=== PATIENT | female | born 1970 | race African-American/Black ===

== ENCOUNTER 2019-11-27 10:50 | Outpatient (CLI) | payer OTHER, SELFPAY ==
[2019-11-27 12:04] LABS: Basophils Percent Auto 0.6 % (0.2-1.2); Eosinophils Percent Auto 0.5 % (0-4.4); Hematocrit 41.3 % (37.0-47.0); Hemoglobin 13.7 g/dL (12.0-15.0); Immature Granulocyte Absolute 0.02 K/mm3 (0.00-0.031); Immature Granulocyte Percent A 0.3 % (0-0.5); Lymphocytes Absolute Auto 1.79 K/mm3 (0.9-3.2); Lymphocytes Percent Auto 27.2 % (18.3-44.2); Mean Corpuscular HGB Conc 33.2 g/dl (32-36); Mean Corpuscular Hemoglobin 30.8 pg (26-34); Mean Corpuscular Volume 92.8 fl (80-100); Mean Platelet Volume 8.7 fl (7.4-10.4); Monocytes Absolute Auto 0.5 K/mm3 (0.1-0.6); Monocytes Percent Auto 6.8 % (2.6-8.5); Neutrophils Absolute Auto 4.2 K/mm3 (1.3-6.7); Neutrophils Percent Auto 64.6 % (45.5-73.1); Platelet Count Result 378 k/mm3 (150-375); Red Blood Count 4.45 M/mm3 (4.2-5.4); Red Cell Distribution Width 12.3 % (11.5-14.5); White Blood Count 6.6 K/mm3 (4.5-10.0)
[2019-11-27 12:18] LABS: Alanine Aminotransferase 21 U/L (4-35); Albumin Level 4.4 g/dL (3.5-5.1); Alkaline Phosphatase 53 U/L (38-126); Aspartate Amino Transferase 25 U/L (14-36); Blood Urea Nitrogen 11 mg/dL (7-17); Calcium 9.1 mg/dL (8.4-10.2); Carbon Dioxide 27 mmol/L (22-30); Chloride 102 mmol/L (98-107); Cholesterol 212 mg/dL (0-200); Estimated Glomerular Filt Rate > 60; Glucose 86 mg/dL (65-105); HDL Direct 60 mg/dL; Potassium 3.8 mmol/L (3.4-5.0); Sodium 136 mmol/L (137-145); Triglycerides 71 mg/dL (<150)
[2019-11-27 12:31] LABS: LDL Cholesterol Direct 125 mg/dL
== END 2019-11-27 10:51 | disposition home or self-care (01) ==
PROVIDERS: PCP Family Medicine; Visit Provider Family Medicine
DX: I10 Essential (primary) hypertension (principal)
CPT/HCPCS: 36415; 80053; 80061; 82248; 84443; 85025

== ENCOUNTER 2019-12-07 16:31 | Outpatient (CLI) | payer OTHER, SELFPAY ==
--- NOTE | ~2019-12-07 | US_ITS ---
US retroperitoneal comp 08/03/2019 15:52 Procedure: Realtime transabdominal ultrasound of the kidneys and bladder. Indication: Bilateral flank pain Comparison: No prior studies for comparison. Findings: Renal echotexture is normal bilaterally without hydronephrosis, contour deforming mass. The re is a tiny echogenic focus in the inferior aspect of the left kidney. Cannot exclude nonobstructing stone. The right kidney measures 10.7 cm and left kidney measures 10 cm. Bladder within normal limi ts. Impression: 1: Small echogenic foci inferior aspect of the left kidney, possibly nonobstructing renal stone. Reviewed, dictated and finalized at location A. [employer] Impression: 1: Small echogenic foci inferior aspect of the left kidney, possibly nonobstruc ting renal stone.
--- NOTE | ~2019-12-07 | XR_ITS ---
LUMBAR SPINE INDICATION: Low back pain TECHNIQUE: 5 views lumbar spine COMPARISON: None FINDINGS: No fracture, subluxation or dislocation. No evidence for spondylolysis or spondylolisthesi s. Vertebral bodies and disk spaces are preserved. IMPRESSION: 1: No significant abnormality of the lumbar spine identified. Reviewed, dictated and finalized at location A. Y LADLE TENDER
== END 2019-12-07 16:32 | disposition home or self-care (01) ==
LOC: ANHIMG 16:32
PROVIDERS: PCP Family Medicine; Visit Provider Family Medicine
DX: R10.9 Unspecified abdominal pain (principal); M54.5 Low back pain
CPT/HCPCS: 72110; 76770

== ENCOUNTER 2020-03-20 10:56 | Outpatient (CLI) | payer OTHER, SELFPAY ==
[2020-03-20 13:03] LABS: Alanine Aminotransferase 19 U/L (4-35); Albumin Level 4.6 g/dL (3.5-5.1); Alkaline Phosphatase 56 U/L (38-126); Aspartate Amino Transferase 23 U/L (14-36); Bilirubin,Total 0.9 mg/dL (0.2-1.3); Blood Urea Nitrogen 10 mg/dL (7-17); Calcium 9.1 mg/dL (8.4-10.2); Carbon Dioxide 30 mmol/L (22-30); Chloride 101 mmol/L (98-107); Cholesterol 184 mg/dL (0-200); Estimated Glomerular Filt Rate > 60; Glucose 88 mg/dL (65-105); HDL Direct 59 mg/dL; Potassium 3.9 mmol/L (3.4-5.0); Sodium 136 mmol/L (137-145); Triglycerides 59 mg/dL (<150)
[2020-03-20 13:14] LABS: LDL Cholesterol Direct 96 mg/dL
== END 2020-03-20 10:57 | disposition home or self-care (01) ==
LOC: ANHLAB 10:57
PROVIDERS: PCP Family Medicine; Visit Provider Family Medicine
DX: E87.1 Hypo-osmolality and hyponatremia (principal); I10 Essential (primary) hypertension; E78.5 Hyperlipidemia, unspecified
CPT/HCPCS: 36415; 80053; 80061

== ENCOUNTER 2020-08-06 08:21 | Outpatient (CLI) | payer OTHER, SELFPAY ==
[2020-08-06 08:53] LABS: Alanine Aminotransferase 18 U/L (4-35); Albumin Level 4.4 g/dL (3.5-5.1); Alkaline Phosphatase 50 U/L (38-126); Anion Gap 8 mmol/L (8-16); Aspartate Amino Transferase 26 U/L (14-36); Bilirubin,Total 0.7 mg/dL (0.2-1.3); Blood Urea Nitrogen 15 mg/dL (7-17); Calcium 9.2 mg/dL (8.4-10.2); Carbon Dioxide 27 mmol/L (22-30); Chloride 101 mmol/L (98-107); Cholesterol 180 mg/dL (0-200); Estimated Glomerular Filt Rate > 60; Glucose 89 mg/dL (65-105); HDL Direct 60 mg/dL; Potassium 4.1 mmol/L (3.4-5.0); Sodium 136 mmol/L (137-145); Triglycerides 78 mg/dL (<150)
[2020-08-06 09:04] LABS: LDL Cholesterol Direct 91 mg/dL
== END 2020-08-06 08:22 | disposition home or self-care (01) ==
PROVIDERS: PCP Family Medicine; Visit Provider Family Medicine
DX: E87.1 Hypo-osmolality and hyponatremia (principal); I10 Essential (primary) hypertension; E78.5 Hyperlipidemia, unspecified
CPT/HCPCS: 36415; 80053; 80061

== ENCOUNTER 2021-04-18 07:40 | Outpatient (CLI) | payer OTHER, SELFPAY ==
[2021-04-18 08:25] LABS: Basophils Absolute Auto 0.1 K/mm3 (0.0-0.1); Basophils Percent Auto 0.7 % (0.2-1.2); Eosinophils Absolute Auto 0.1 K/mm3 (0-0.3); Eosinophils Percent Auto 0.9 % (0-4.4); Hematocrit 41.8 % (37.0-47.0); Immature Granulocyte Absolute 0.02 K/mm3 (0.00-0.031); Immature Granulocyte Percent A 0.3 % (0-0.5); Lymphocytes Absolute Auto 1.86 K/mm3 (0.9-3.2); Lymphocytes Percent Auto 24.3 % (18.3-44.2); Mean Corpuscular HGB Conc 33.5 g/dl (32-36); Mean Corpuscular Volume 92.7 fl (80-100); Mean Platelet Volume 8.5 fl (7.4-10.4); Monocytes Absolute Auto 0.5 K/mm3 (0.1-0.6); Monocytes Percent Auto 6.1 % (2.6-8.5); Neutrophils Absolute Auto 5.2 K/mm3 (1.3-6.7); Neutrophils Percent Auto 67.7 % (45.5-73.1); Platelet Count Result 309 k/mm3 (150-375); Red Blood Count 4.51 M/mm3 (4.2-5.4); Red Cell Distribution Width 11.8 % (11.5-14.5); White Blood Count 7.7 K/mm3 (4.5-10.0)
[2021-04-18 08:44] LABS: Alanine Aminotransferase 18 U/L (4-35); Albumin Level 4.6 g/dL (3.5-5.1); Alkaline Phosphatase 53 U/L (38-126); Anion Gap 10 mmol/L (8-16); Aspartate Amino Transferase 25 U/L (14-36); Bilirubin,Total 0.7 mg/dL (0.2-1.3); Blood Urea Nitrogen 14 mg/dL (7-17); Calcium 9.6 mg/dL (8.4-10.2); Carbon Dioxide 26 mmol/L (22-30); Chloride 103 mmol/L (98-107); Cholesterol 232 mg/dL (0-200); Estimated Glomerular Filt Rate > 60; Glucose 94 mg/dL (65-110); HDL Direct 66 mg/dL; Potassium 4.2 mmol/L (3.4-5.0); Sodium 139 mmol/L (137-145); Triglycerides 97 mg/dL (<150)
[2021-04-18 08:55] LABS: LDL Cholesterol Direct 117 mg/dL
== END 2021-04-18 07:41 | disposition home or self-care (01) ==
PROVIDERS: PCP Family Medicine; Visit Provider Family Medicine
DX: Z00.00 Encounter for general adult medical examination without abnormal findings (principal)
CPT/HCPCS: 36415; 80053; 80061; 85025

== ENCOUNTER 2021-11-12 08:20 | Emergency (ER) | payer OTHER, SELFPAY ==
--- NOTE | 2021-11-12 08:27 | ED.URI ---
HPI - URI/Sore Throat General Chief Complaint: Upper Respiratory Infection Stated Complaint: Throat/Ear Pain Time Seen by Provider: 11/12/21 08:25 Source: patient Mode of arrival: ambulatory Limitations: no limitations History of Present Illness HPI Narrative: 50-year-old female presents with concern for sore throat, nasal congestion, cough, bilateral ear pain since yesterday evening. Denies fever/chills. + fatigue. Taking Coricidin with no relief. pt works in healthcare setting. no known covid contacts but wants testing to be safe. denies SOB/CP. MD elicited complaint: sore throat Related Data Home Medications Medication Instructions Recorded Confirmed amlodipine 5 mg PO DAILY 11/12/21 11/12/21 rosuvastatin 5 mg PO DAILY 11/12/21 11/12/21 Allergies Allergy/AdvReac Type Severity Reaction Status Date / Time codeine Allergy Unknown Hives Verified 11/12/21 08:26 latex Allergy Unknown Other Verified 11/12/21 08:26 Review of Systems Review of Systems: All systems reviewed & are unremarkable except as noted in HPI and below Constitutional: Constitutional: Reports fatigue Eyes: Eyes: Reports as per HPI ENT: Reports nasal congestion and Reports sore throat Cardiovascular: Cardiovascular: Reports as per HPI Respiratory: Respiratory: Reports cough Gastrointestinal: Gastrointestinal: Reports as per HPI Genitourinary: Genitourinary: Reports as per HPI Musculoskeletal: Musculoskeletal: Reports as per HPI Integumentary/Breasts: Skin/Breast: Reports as per HPI Neurologic: Reports as per HPI Psychiatric: Psychiatric: Reports as per HPI Endocrine: Endocrine: Reports as per HPI Hematologic/Lymphatic: Hematologic/Lymphatic: Reports as per HPI Allergic/Immunologic: Allergic/Immunologic: Reports as per HPI PMFSH Past Medical History Medical History (Updated 11/12/21 @ 09:04 by Mayela Pérez NP) HLD (hyperlipidemia) HTN (hypertension) Surgical History Surgical History H/O tubal ligation H/O: hysterectomy History of right oophorectomy Family History Family History (Updated 06/02/18 @ 09:38 by DOCTOR UNKNOWN) Father Diabetes mellitus Hypertension Mother Hypertension Social History Social History Smoking status: Never smoker Alcohol intake: never Comments At time of signature, agree with nursing past medical, surgical, social and family history. There is no relevant family history pertinent to the presenting complaint. Exam Const: General: cooperative, no acute distress, alert and awake HENMT: Head: normal to inspection Ears: external ears normal and TM's normal bilaterally General nose exam: Normal external nose present and Nasal discharge present clear Face and sinus: normal facial exam Mouth: Yes Normal oral and palatal mucosa present Teeth and gingiva: dentition normal Throat: postnasal drainage Eyes: General: appearance normal, both eyes and all related structures Neck: Neck: normal visual inspection, full ROM and no lymphadenopathy Chest: Chest palpation & inspection: normal inspection of the chest Resp: Effort & Inspection: normal respiratory effort and able to speak in complete sentences Auscultation: clear to auscultation bilaterally Cardio: Rate: regular rate Rhythm: regular rhythm Skin: General skin exam: normal color and no rashes or lesions noted Neuro: General: oriented to person, oriented to place and oriented to time Extrem: General: normal to inspection and full ROM Course Course Emergency Course: Patient is aware of diagnosis, understands and agrees to treatment plan. Anticipatory guidance given. Patient agrees to follow-up as directed and is aware of reasons to seek care at the emergency department. Portions of this record may have been created with voice recognition software Level of Care: [facility] Care Visit Vi
[2021-11-12 08:28] VITALS: BP 156/93; PULSE 95; RESP 16; TEMP 36.4; O2SAT 99
== END 2021-11-12 09:23 | disposition home or self-care (01) ==
PROVIDERS: Emergency Provider Nurse Practitioner Family; PCP Family Medicine
DX: J06.9 Acute upper respiratory infection, unspecified (principal); Z20.822 Contact with and (suspected) exposure to COVID-19; E78.00 Pure hypercholesterolemia, unspecified; I10 Essential (primary) hypertension; Z90.711 Acquired absence of uterus with remaining cervical stump
CPT/HCPCS: 87426; 99213; C9803; G0463

== ENCOUNTER 2021-12-16 09:47 | Outpatient (CLI) | payer OTHER, SELFPAY ==
[2021-12-16 10:42] LABS: Basophils Absolute Auto 0.1 K/mm3 (0.0-0.1); Basophils Percent Auto 1.1 % (0.2-1.2); Eosinophils Absolute Auto 0.1 K/mm3 (0-0.3); Eosinophils Percent Auto 0.9 % (0-4.4); Hematocrit 39.5 % (37.0-47.0); Hemoglobin 13.3 g/dL (12.0-15.0); Immature Granulocyte Absolute 0.02 K/mm3 (0.00-0.031); Immature Granulocyte Percent A 0.3 % (0-0.5); Lymphocytes Absolute Auto 2.49 K/mm3 (0.9-3.2); Lymphocytes Percent Auto 31.8 % (18.3-44.2); Mean Corpuscular HGB Conc 33.7 g/dl (32-36); Mean Corpuscular Hemoglobin 31.1 pg (26-34); Mean Corpuscular Volume 92.5 fl (80-100); Mean Platelet Volume 8.4 fl (7.4-10.4); Monocytes Absolute Auto 0.5 K/mm3 (0.1-0.6); Monocytes Percent Auto 6.8 % (2.6-8.5); Neutrophils Absolute Auto 4.6 K/mm3 (1.3-6.7); Neutrophils Percent Auto 59.1 % (45.5-73.1); Platelet Count Result 335 k/mm3 (150-375); Red Blood Count 4.27 M/mm3 (4.2-5.4); Red Cell Distribution Width 12.3 % (11.5-14.5); White Blood Count 7.8 K/mm3 (4.5-10.0)
[2021-12-16 10:52] LABS: Alanine Aminotransferase 22 U/L (4-35); Albumin Level 4.7 g/dL (3.5-5.1); Alkaline Phosphatase 43 U/L (38-126); Anion Gap 7 mmol/L (8-16); Aspartate Amino Transferase 29 U/L (14-36); Bilirubin,Total 0.5 mg/dL (0.2-1.3); Blood Urea Nitrogen 13 mg/dL (7-17); Calcium 8.7 mg/dL (8.4-10.2); Carbon Dioxide 27 mmol/L (22-30); Chloride 104 mmol/L (98-107); Cholesterol 210 mg/dL (0-200); Estimated Glomerular Filt Rate > 60; Glucose 88 mg/dL (65-110); HDL Direct 61 mg/dL; Sodium 138 mmol/L (137-145); Triglycerides 59 mg/dL (<150)
[2021-12-16 11:03] LABS: LDL Cholesterol Direct 99 mg/dL
== END 2021-12-16 09:48 | disposition home or self-care (01) ==
LOC: ANHLAB 09:49
PROVIDERS: PCP Family Medicine; Visit Provider Family Medicine
DX: I10 Essential (primary) hypertension (principal)
CPT/HCPCS: 36415; 80053; 80061; 85025

== ENCOUNTER 2022-05-04 16:47 | Emergency (ER) | payer OTHER, SELFPAY ==
[2022-05-04] VITALS (12 sets, daily range): BP systolic 139–202; BP diastolic 84–104; PULSE 64–84; RESP 16–20; TEMP 36–36.8; O2SAT 97–100
--- NOTE | ~2022-05-04 | CT_ITS ---
EXAMINATION: CT abdomen pelvis wo con DATE: 05/04/2022 18:44 INDICATION: lower abd/LT flank pain x 1 1/2 wks TECHNIQUE: Computed tomography (CT) of the abdomen and pelvis was performed without intravenous contr ast. Automated exposure control and iterative reconstruction technique were employed. The dose-length product was 241.91 mGy-cm. COMPARISON: 08/30/2019. FINDINGS: Lower thorax: Unremarkable Liver: Normal. Biliary/Gallbladder: Gallbladder is normal. No bile duct dilation. Pancreas: No mass or duct dilation. Spleen: Normal. Adrenals:No mass. Kidneys: No mass or hydronephrosis. Punctate left upper pole calcification. GI tract: No small or large bowel dilation. Normal appendix. Diverticulosis without diverticulitis. Mesentery/Peritoneum: No ascites, mass, or free air. Retroperitoneum: No mass. Pelvis: Uterus is likely surgically absent. 3.7 cm left ovarian cyst. Mid and distal ureters incomple tely visualized. Mild bladder wall thickening given the degree of distention. Soft Tissues: Soft tissues and body wall unremarkable. Bones: No acute osseous finding. IMPRESSION: Mild bladder wall thickening, as can be seen with cystitis in the appropriate clinical context. 3.7 c m left ovarian cyst. Reviewed, dictated and finalized at location K. IMPRESSION: Mild bladder wall thickening, as can be seen with cystitis in the appropriate c linical context. 3.7 cm left ovarian cyst.
[2022-05-04] MEDS: KETOROLAC (*BKC) 60 MG/2 ML VIAL IM (18:05)
[2022-05-04 18:22] LABS: Basophils Absolute Auto 0.05 K/mm3 (0.00-0.10); Basophils Percent Auto 0.4 % (0.0-1.0); Eosinophils Absolute Auto 0.03 K/mm3 (0.02-0.50); Eosinophils Percent Auto 0.2 % (1.0-6.0); Hematocrit 41.3 % (35.0-49.0); Hemoglobin 13.7 g/dL (12.0-15.0); Immature Granulocyte Absolute 0.04 K/mm3 (0.00-0.00); Immature Granulocyte Percent A 0.3 % (0.0-0.0); Lymphocytes Absolute Auto 2.42 K/mm3 (1.10-4.50); Mean Corpuscular HGB Conc 33.2 g/dL (32.0-36.0); Mean Corpuscular Hemoglobin 31.3 pg (27.0-31.0); Mean Corpuscular Volume 94.3 fL (78.0-102.0); Mean Platelet Volume 8.3 fl (9.2-11.8); Monocytes Absolute Auto 0.84 K/mm3 (0.10-0.90); Monocytes Percent Auto 6.3 % (2.0-11.0); Neutrophils Percent Auto 74.8 % (50.0-70.0); Platelet Count Result 327 K/mm3 (150-420); Red Blood Count 4.38 M/mm3 (4.20-5.40); Red Cell Distribution Width 12.6 % (11.6-14.4); White Blood Count 13.4 K/mm3 (4.8-10.8)
[2022-05-04 18:25] LABS: Add Urine Microscopic? YES; Appearance Urine Clear (Clear); Bilirubin Urine Negative (Negative); Blood Urine 1+ (Negative); Color Urine Yellow (Yellow); Glucose Urine UA Negative (Negative); Ketones Urine 2+ (Negative); Leukocyte Esterase Ur Negative (Negative); Nitrate Urine Negative (Negative); Protein Urine Negative (Negative); Specific Grav Ur >= 1.030 (1.010-1.020); Urobilinogen Urine 0.2 mg/dL (0.2-1.0)
[2022-05-04 18:30] LABS: Bacteria Urine Trace /hpf; Mucus Urine Few /lpf; Pregnancy On Board Control Positive; Squamous Epithelial Cell Urine Rare /hpf (Few); Urine Pregnancy Test Negative; WBC Urine 0-3 /hpf (0-3)
--- NOTE | 2022-05-04 18:36 | PC.NURSE ---
PT IS ON STRETCHER WATCHING TV AT THIS TIME. PT REPORTS PAIN HAS IMPROVED, HOWEVER DOES REMAIN. PT IS AWAITING CT AT THIS TIME. WILL CONTINUE TO MONITOR.
--- NOTE | 2022-05-04 18:37 | PC.NURSE ---
TO CT AT THIS TIME.
[2022-05-04 18:38] LABS: Alanine Aminotransferase 19 U/L (14-59); Alkaline Phosphatase 57 U/L (46-116); Anion Gap 10 mmol/L (8-16); Aspartate Amino Transferase 14 U/L (15-37); Bilirubin,Total 0.6 mg/dL (0.00-1.00); Blood Urea Nitrogen 9 mg/dL (7-18); Calcium 9.1 mg/dL (8.5-10.1); Carbon Dioxide 27 mmol/L (21-32); Chloride 102 mmol/L (98-108); Estimated CRCL calculation 68 ml/min; Estimated Glomerular Filt Rate > 60; Glucose 86 mg/dL (70-99); Lipase 104 U/L (73-393); Osmolality Calculated 285 mOsm/kg (285-295); Potassium 3.7 mmol/L (3.5-5.1); Sodium 139 mmol/L (136-145); Total Protein 7.5 g/dL (6.4-8.2)
--- NOTE | 2022-05-04 19:09 | ED.FEMALEGU ---
HPI - Female Genitourinary General Chief complaint: Urogenital-Female Stated complaint: Kidney issue abdominal and back pain. Time Seen by Provider: 05/04/22 16:51 Source: patient and RN notes reviewed Mode of arrival: ambulatory Limitations: no limitations History of Present Illness HPI Narrative: mild persistent abdominal pain corey left flank and suprapubic. MD elicited complaint: difficulty urinating Onset (ago): week(s) (1) Location of symptoms: suprapubic and flank Severity: mild Female Urogenital Radiation: Suprapubic Severity scale (1-10): 4 Quality of pain: dull and aching Consistency: constant Vaginal discharge: none Vaginal bleeding: none Urinary symptoms: Urgency, Frequency and Foul Smelling Urine Exacerbating factors: none Relieving factors: none Associated symptoms: abdominal pain Treatment prior to arrival: none Patient : No Related Data Home Medications Medication Instructions Recorded Confirmed amlodipine 5 mg tablet 5 mg PO DAILY 11/12/21 05/04/22 rosuvastatin 5 mg tablet 5 mg PO DAILY 11/12/21 05/04/22 Allergies Allergy/AdvReac Type Severity Reaction Status Date / Time codeine Allergy Unknown Hives Verified 05/04/22 17:07 latex Allergy Unknown Other Verified 05/04/22 17:07 Review of Systems Review of Systems: All systems reviewed & are unremarkable except as noted in HPI and below Constitutional: Constitutional: Reports no additional constitutional complaints Eyes: Eyes: Reports no additional eye complaints ENT: Reports system reviewed and no additional complaints, except as documented Cardiovascular: Cardiovascular: Reports no additional cardiovascular complaints Respiratory: Respiratory: Reports no additional respiratory complaints Gastrointestinal: Gastrointestinal: Reports no additional gastrointestinal complaints Genitourinary: Genitourinary: Reports pelvic pain Musculoskeletal: Musculoskeletal: Reports no additional musculoskeletal complaints Integumentary/Breasts: Skin/Breast: Reports system reviewed and no additional complaints, except as docu Neurologic: Reports system reviewed and no additional complaints, except as documented Psychiatric: Psychiatric: Reports no additional psychiatric complaints Endocrine: Endocrine: Reports no additional endocrine complaints Hematologic/Lymphatic: Hematologic/Lymphatic: Reports no additional hematologic/lymphatic complaints Allergic/Immunologic: Allergic/Immunologic: Reports no additional allergic/immunologic complaints PMFSH Past Medical History Medical History Cystitis HLD (hyperlipidemia) HTN (hypertension) Urinary tract infection Surgical History Surgical History H/O tubal ligation H/O: hysterectomy History of right oophorectomy Family History Family History Father Diabetes mellitus Hypertension Mother Hypertension Social History Social History Smoking status: Never smoker Alcohol intake: never Exam Const: General: healthy appearing and no acute distress Nutritional Appearance: well nourished Orientation/consciousness: patient oriented x3 Limitations: no limitations HENMT: Head: normal to inspection Ears: external ears normal, TM's normal bilaterally and EAC's normal General nose exam: Normal external nose present and Normal nares present Face and sinus: normal facial exam and sinuses nontender Mouth: Yes Normal oral and palatal mucosa present and Yes moist mucous membranes Teeth and gingiva: dentition normal Throat: posterior oropharynx normal Eyes: Conjunctivae: conjunctivae normal Pupils: Equal, round and reactive pupils present EOM: EOMs intact bilaterally Neck: Neck: normal visual inspection, no lymphadenopathy and no meningeal signs Chest: Chest pa
[2022-05-04] MEDS: cefTRIAXone 1 GM, LIDOCAINE HCL 1% LOCAL INJ 2.1 ML IM (19:20)
== END 2022-05-04 19:40 | disposition home or self-care (01) ==
PROVIDERS: Emergency Provider Emergency Medicine; PCP Family Medicine
DX: N39.0 Urinary tract infection, site not specified (principal)
CPT/HCPCS: 36415; 74176; 80053; 81001; 81025; 83690; 85025; 96372; 99284; J0696; J1885

== ENCOUNTER 2022-05-18 10:38 | Outpatient (CLI) | payer OTHER, SELFPAY ==
[2022-05-18 11:57] LABS: Appearance Urine Clear (Clear); Basophils Absolute Auto 0.1 K/mm3 (0.0-0.1); Basophils Percent Auto 0.8 % (0.2-1.2); Bilirubin Urine Negative (Negative); Blood Urine Negative (Negative); Color Urine Yellow (Yellow); Eosinophils Percent Auto 0.3 % (0-4.4); Glucose Urine UA Negative (Negative); Hematocrit 41.9 % (37.0-47.0); Hemoglobin 13.8 g/dL (12.0-15.0); Immature Granulocyte Absolute 0.02 K/mm3 (0.00-0.031); Immature Granulocyte Percent A 0.3 % (0-0.5); Ketones Urine Trace mg/dL (Negative); Leukocyte Esterase Ur Negative LEU/UL (Negative); Lymphocytes Absolute Auto 1.95 K/mm3 (0.9-3.2); Lymphocytes Percent Auto 26.3 % (18.3-44.2); Mean Corpuscular HGB Conc 32.9 g/dl (32-36); Mean Corpuscular Volume 94.2 fl (80-100); Mean Platelet Volume 8.4 fl (7.4-10.4); Monocytes Absolute Auto 0.5 K/mm3 (0.1-0.6); Monocytes Percent Auto 6.5 % (2.6-8.5); Neutrophils Absolute Auto 4.9 K/mm3 (1.3-6.7); Neutrophils Percent Auto 65.8 % (45.5-73.1); Nitrate Urine Negative (Negative); Platelet Count Result 417 k/mm3 (150-375); Protein Urine Negative (Negative); Red Blood Count 4.45 M/mm3 (4.2-5.4); Red Cell Distribution Width 12.8 % (11.5-14.5); Specific Grav Ur >= 1.030 (1.001-1.035); Urobilinogen Urine 0.2 mg/dL (<2.0); White Blood Count 7.4 K/mm3 (4.5-10.0); pH Urine 5.5 (5.0-9.0)
[2022-05-18 12:02] LABS: Mucus Urine Few /lpf; Squamous Epithelial Cell Urine Rare /hpf (Few); WBC Urine 0-3 /hpf
[2022-05-18 12:09] LABS: Alanine Aminotransferase 20 U/L (6-35); Albumin Level 4.7 g/dL (3.5-5.1); Alkaline Phosphatase 50 U/L (38-126); Anion Gap 6 mmol/L (8-16); Aspartate Amino Transferase 27 U/L (14-36); Bilirubin,Total 0.5 mg/dL (0.2-1.3); Blood Urea Nitrogen 9 mg/dL (7-17); Carbon Dioxide 32 mmol/L (22-30); Chloride 99 mmol/L (98-107); Estimated Glomerular Filt Rate > 60; Glucose 88 mg/dL (65-110); Potassium 3.9 mmol/L (3.4-5.0); Sodium 137 mmol/L (137-145)
[2022-05-18 12:16] LABS: Add Urine Microscopic? YES
[2022-05-18 12:27] LABS: Erythrocyte Sedimentation Rate 10 mm/hr (0-20)
== END 2022-05-18 10:39 | disposition home or self-care (01) ==
PROVIDERS: PCP Family Medicine; Visit Provider Family Medicine
DX: R60.0 Localized edema (principal); I10 Essential (primary) hypertension; R30.0 Dysuria; R10.9 Unspecified abdominal pain
CPT/HCPCS: 36415; 80053; 81001; 85025; 85652; 87086

== ENCOUNTER 2022-05-27 07:56 | Outpatient (CLI) | payer OTHER, SELFPAY ==
--- NOTE | ~2022-05-27 | CT_ITS ---
EXAMINATION: CT abdomen pelvis w con DATE: 05/27/2022 14:45 INDICATION: Intermittent left abdominal pain and cramping for one month TECHNIQUE: Computed tomography (CT) of the abdomen and pelvis was performed with 100 CC Omnipaque 350 intravenous contrast. Automated exposure control and iterative reconstruction technique were employe d. Exam dose: 277.31 mGy-cm total exam DLP. COMPARISON: 05/04/2022 CT abdomen pelvis FINDINGS: The lung bases are clear. Normal heart size. No pericardial or pleural effusion. There is hepatic steatosis, more prominent near the fissure for the ligamentum teres. No hepatic, spl enic, pancreatic, and adrenal or renal space-occupying mass lesion is detected. The gallbladder is pr esent. No bile duct or pancreatic duct dilatation. Normal caliber of the abdominal aorta. No intraperitoneal or retroperitoneal or pelvic mass lesion or adenopathy or ascites. The uterus is absent. The urinary bladder is unremarkable. No evidence of appendicitis. No bowel obstruction, bowel wall thickening, pneumatosis or intraperiton eal free air. Small fat-containing umbilical hernia. Included skeletal structures are unremarkable.. IMPRESSION: Status post hysterectomy Normal appendix Hepatic steatosis Reviewed, dictated and finalized at Location A. Reviewed, dictated and finalized at location B.
== END 2022-05-27 07:57 | disposition home or self-care (01) ==
LOC: ANHIMG 08:01
PROVIDERS: PCP Family Medicine
DX: R10.9 Unspecified abdominal pain (principal); K76.0 Fatty (change of) liver, not elsewhere classified
CPT/HCPCS: 74177; Q9967

== ENCOUNTER 2023-01-07 10:06 | Outpatient (CLI) | payer OTHER, SELFPAY ==
[2023-01-07 12:00] LABS: Basophils Absolute Auto 0.1 K/mm3 (0.0-0.1); Basophils Percent Auto 0.8 % (0.2-1.2); Eosinophils Absolute Auto 0.1 K/mm3 (0-0.3); Eosinophils Percent Auto 0.7 % (0-4.4); Hematocrit 42.8 % (37.0-47.0); Hemoglobin 14.3 g/dL (12.0-15.0); Immature Granulocyte Absolute 0.01 K/mm3 (0.00-0.031); Immature Granulocyte Percent A 0.1 % (0-0.5); Lymphocytes Absolute Auto 2.23 K/mm3 (0.9-3.2); Lymphocytes Percent Auto 31.6 % (18.3-44.2); Mean Corpuscular HGB Conc 33.4 g/dl (32-36); Mean Corpuscular Hemoglobin 31.4 pg (26-34); Mean Corpuscular Volume 93.9 fl (80-100); Mean Platelet Volume 8.5 fl (7.4-10.4); Monocytes Absolute Auto 0.4 K/mm3 (0.1-0.6); Monocytes Percent Auto 5.8 % (2.6-8.5); Neutrophils Absolute Auto 4.3 K/mm3 (1.3-6.7); Platelet Count Result 305 k/mm3 (150-375); Red Blood Count 4.56 M/mm3 (4.2-5.4); Red Cell Distribution Width 12.2 % (11.5-14.5); White Blood Count 7.1 K/mm3 (4.5-10.0)
[2023-01-07 12:08] LABS: Appearance Urine Clear (Clear); Bacteria Urine Rare /hpf; Bilirubin Urine Negative (Negative); Blood Urine Negative (Negative); Color Urine Yellow (Yellow); Glucose Urine UA Negative (Negative); Ketones Urine Trace mg/dL (Negative); Leukocyte Esterase Ur Negative LEU/UL (Negative); Nitrate Urine Negative (Negative); Non Pathogenic Casts 0-2; Protein Urine Trace mg/dL (Negative); RBC Urine 0-2 /hpf (0-2); Specific Grav Ur 1.028 (1.001-1.035); Squamous Epithelial Cell Urine Few /hpf (Few); Urobilinogen Urine 0.2 mg/dL (<2.0); WBC Urine 0-5 /hpf; pH Urine 5.5 (5.0-9.0)
[2023-01-07 12:09] LABS: Add Urine Microscopic? YES
[2023-01-07 12:34] LABS: Alanine Aminotransferase 24 U/L (6-35); Albumin Level 4.9 g/dL (3.5-5.1); Alkaline Phosphatase 49 U/L (38-126); Anion Gap 9 mmol/L (8-16); Aspartate Amino Transferase 34 U/L (14-36); Bilirubin,Total 1.3 mg/dL (0.2-1.3); Blood Urea Nitrogen 16 mg/dL (7-17); Carbon Dioxide 27 mmol/L (22-30); Chloride 101 mmol/L (98-107); Cholesterol 208 mg/dL (0-200); Estimated Glomerular Filt Rate > 60; Glucose 86 mg/dL (65-110); HDL Direct 63 mg/dL; Potassium 4.1 mmol/L (3.4-5.0); Sodium 137 mmol/L (137-145); Triglycerides 85 mg/dL (<150)
[2023-01-07 12:38] LABS: LDL Cholesterol Direct 105 mg/dL
[2023-01-07 12:59] LABS: Erythrocyte Sedimentation Rate 6 mm/hr (0-20)
== END 2023-01-07 10:07 | disposition home or self-care (01) ==
LOC: ANHLAB 10:08
PROVIDERS: PCP Family Medicine; Visit Provider Family Medicine
DX: Z00.00 Encounter for general adult medical examination without abnormal findings (principal); R60.0 Localized edema; I10 Essential (primary) hypertension; R30.0 Dysuria; R10.9 Unspecified abdominal pain
CPT/HCPCS: 36415; 80053; 80061; 81001; 85025; 85652

== ENCOUNTER 2023-03-18 18:18 | Emergency (ER) | payer OTHER, SELFPAY ==
[2023-03-18] VITALS (9 sets, daily range): BP systolic 126–163; BP diastolic 81–95; PULSE 65–87; RESP 12–18; TEMP 36.6; O2SAT 99–100
--- NOTE | ~2023-03-18 | XR_ITS ---
EXAMINATION: XR chest 2V Exam Date/Time: 03/18/2023 18:30 CDT HISTORY: chest pain Comparison: 02/02/2018. RESULT: Lines, tubes, and devices: None. Lungs and pleura: Clear. Cardiomediastinal silhouette: Stable. Other: No acute osseous or upper abdominal finding. IMPRESSION: No acute cardiopulmonary process. Reviewed, dictated and finalized at location K.
--- NOTE | 2023-03-18 18:20 | ECG_ITS ---
Measurements Intervals [place] Rate: 71 P: 62 WA: 135 QRS: 7 QRSD: 85 T: 29 QT: 364 QTc: 397 Interpretive Statements SINUS RHYTHM NONSPECIFIC T-WAVE ABNORMALITY ABNORMAL ECG NO PREVIOUS ECG AVAILABLE FOR COMPARISON Electronically Signed On 03-19-2023 7:52:48 CDT by Cecil Mccann M.D.
[2023-03-18 19:02] LABS: Basophils Absolute Auto 0.1 K/mm3 (0.0-0.1); Basophils Percent Auto 0.8 % (0.2-1.2); Eosinophils Absolute Auto 0.1 K/mm3 (0-0.3); Eosinophils Percent Auto 0.9 % (0-4.4); Hematocrit 39.7 % (37.0-47.0); Hemoglobin 13.5 g/dL (12.0-15.0); Lymphocytes Absolute Auto 2.59 K/mm3 (0.9-3.2); Lymphocytes Percent Auto 33.2 % (18.3-44.2); Mean Corpuscular Hemoglobin 31.5 pg (26-34); Mean Corpuscular Volume 92.5 fl (80-100); Mean Platelet Volume 8.4 fl (7.4-10.4); Monocytes Absolute Auto 0.6 K/mm3 (0.1-0.6); Monocytes Percent Auto 7.9 % (2.6-8.5); Neutrophils Absolute Auto 4.5 K/mm3 (1.3-6.7); Neutrophils Percent Auto 57.2 % (45.5-73.1); Platelet Count Result 353 k/mm3 (150-375); Red Blood Count 4.29 M/mm3 (4.2-5.4); Red Cell Distribution Width 12.6 % (11.5-14.5); White Blood Count 7.8 K/mm3 (4.5-10.0)
[2023-03-18 19:12] LABS: Alanine Aminotransferase 24 U/L (6-35); Albumin Level 4.5 g/dL (3.5-5.1); Alkaline Phosphatase 55 U/L (38-126); Anion Gap 6 mmol/L (8-16); Aspartate Amino Transferase 28 U/L (14-36); Bilirubin,Total 0.4 mg/dL (0.2-1.3); Blood Urea Nitrogen 15 mg/dL (7-17); Calcium 8.6 mg/dL (8.4-10.2); Carbon Dioxide 27 mmol/L (22-30); Chloride 104 mmol/L (98-107); Estimated CRCL calculation 86 ml/min; Estimated Glomerular Filt Rate > 60; Glucose 92 mg/dL (65-110); Lipase 98 U/L (23-300); Potassium 3.9 mmol/L (3.4-5.0); Sodium 137 mmol/L (137-145)
[2023-03-18 19:13] LABS: Prothrombin Time 13.3 Seconds (11.1-14.7)
[2023-03-18 19:14] LABS: Partial Thromboplastin Time 31.5 SECONDS (22.3-36.8)
--- NOTE | 2023-03-18 19:16 | PC.NURSE ---
Patient report given to BRITTANEY Baca. All questions answered and care of patient transferred.
[2023-03-18 19:21] LABS: Influenza A QL RT-PCR Negative (Negative); Influenza B QL RT-PCR Negative (Negative); SARS-CoV-2 RNA PCR Negative (Negative)
[2023-03-18 19:24] LABS: Troponin I < 0.012 ng/mL (0.000-0.034)
[2023-03-18] MEDS: SODIUM CHLORIDE 0.9% IV 2,000 ML 999 ML IV CONT (19:50)
[2023-03-18] MEDS: KETOROLAC 15 MG/ML VIAL (*BKC) IV PUSH (19:51)
[2023-03-18] MEDS: ACETAMINOPHEN 500 MG TABLET 1000 MG PO (19:52)
--- NOTE | 2023-03-18 19:56 | ED.GENADULT ---
HPI - General Adult General Chief complaint: Chest Pain Stated complaint: Chest pain, RUSSELL, abd pain Time Seen by Provider: 03/18/23 19:05 History of Present Illness HPI narrative: This is a 52-year-old female presenting with multiple complaints. Three days ago she started having ear pain and fullness. Several hours after that she developed chest pain that she describes as a pressure on the left side of her chest that radiates to her left arm. Seven out 10 intensity. Comes and goes. Patient has had this multiple times in the past. She says she has 3 to 4 times a year for the last 3 or 4 years. She has had a stress test in the past which was normal. The pain is worsened by movement and there are no alleviating factors. She has taken some bear Tylenol with minimal relief. The patient also has associated headache and some muscle aches. she is not complaining of fever chills shortness of breath nausea vomiting diarrhea. No sick contacts at home. Related Data Home Medications Medication Instructions Recorded Confirmed amlodipine 5 mg tablet 5 mg PO DAILY 11/12/21 05/04/22 rosuvastatin 5 mg tablet 5 mg PO DAILY 11/12/21 05/04/22 Allergies Allergy/AdvReac Type Severity Reaction Status Date / Time codeine Allergy Unknown Hives Verified 05/04/22 17:07 latex Allergy Unknown Other Verified 05/04/22 17:07 [facility] Past Medical History Medical History Cystitis HLD (hyperlipidemia) HTN (hypertension) Urinary tract infection Surgical History Surgical History H/O tubal ligation H/O: hysterectomy History of right oophorectomy Family History Family History Father Diabetes mellitus Hypertension Mother Hypertension Social History Social History Smoking status: Never smoker Alcohol intake: never Exam Narrative: APPEARANCE: No apparent distress. Head: Tympanic membranes are normal bilaterally EYES: EOMI, NOSE: Atraumatic NECK: Trachea midline RESPIRATORY: No increased rate of breathing, clear to auscultation CARDIOVASCULAR: RRR, no peripheral edema ABDOMINAL: Non-distended, soft no guarding MUSCULOSKELETAl: No obvious deformities NEURO: Alert. Moving 4/4 extremities SKIN:: Warm, dry. Normal color PSYCHIATRIC: Normal affect Course Vital Signs Vital signs: Vital Signs Temperature 98 F 03/18/23 18:21 Pulse Rate 87 03/18/23 18:21 Respiratory Rate 18 03/18/23 18:21 Blood Pressure 163/93 H 03/18/23 18:21 Pulse Oximetry 100 03/18/23 18:21 Oxygen Delivery Room Air 03/18/23 18:21 Temperature 98 F 03/18/23 18:21 Pulse Rate 71 03/18/23 19:16 Respiratory Rate 12 03/18/23 19:16 Blood Pressure 145/95 H 03/18/23 19:16 Pulse Oximetry 99 03/18/23 19:16 Oxygen Delivery Room Air 03/18/23 18:21 Medical Decision Making MDM Narrative Medical decision making narrative: -Presentation: 52-year-old female presenting with ear pain headache body aches and chest pain. She is well appearing with stable vital signs. She is worried about her heart so chest pain workup will be obtained. viral swabs ordered. Patient given Toradol Tylenol and normal saline. -DDX includes but is not limited to: Viral syndrome, ACS, pneumonia -Co-morbidities complicating care: hypertension, high cholesterol -Social determinants of health: patient works at our hospital as patient access, she lives with her fiance and son -External Chart Review: review of ER notes from October 2021 for viral syndrome the presented with bilateral ear pain -Hx from independent Sources: none -Discussion of Management/Consultants: none -Independent interpretation of studies: CBC normal. Metabolic panel normal. Troponins negative x2. Viral swabs negative. Chest x-ray unre
[2023-03-18 21:56] LABS: Troponin I < 0.012 ng/mL (0.000-0.034)
== END 2023-03-18 23:26 | disposition home or self-care (01) ==
PROVIDERS: Emergency Medicine; Emergency Provider Emergency Medicine; PCP Family Medicine
DX: B34.9 Viral infection, unspecified (principal); R07.89 Other chest pain; Z20.822 Contact with and (suspected) exposure to COVID-19; E78.5 Hyperlipidemia, unspecified; Z90.710 Acquired absence of both cervix and uterus; Z90.721 Acquired absence of ovaries, unilateral; R94.31 Abnormal electrocardiogram [ECG] [EKG]
CPT/HCPCS: 36415; 71046; 80053; 83690; 84484; 85025; 85610; 85730; 87636; 93005; 96361; 96374; 99284; A9270; J1885; J7030

== ENCOUNTER 2023-03-23 12:52 | Outpatient (CLI) | payer OTHER, SELFPAY ==
--- NOTE | ~2023-03-23 | CT_ITS ---
CT scan of the Neck Technique: 2.5 mm axial scans were obtained through the neck after intravenous administration of 75 c c Omnipaque 350. Coronal and sagittal reconstructions of the neck were obtained. Dose reduction techn ique was used on this scan by utilizing automated exposure control and iterative reconstruction techn ique. The dose-length product (DLP) was 533.36 mGy-cm. Clinical History: Right parotid gland mass Findings: There is no evidence of any significant cervical lymphadenopathy. Several small, nonenlarged jugulo- digastric and posterior cervical lymph nodes are noted bilaterally. Parapharyngeal spaces appear norm al bilaterally. The parotid and submandibular glands appear normal. The pharyngeal mucosal spaces appear normal. No soft tissue masses are seen in the neck. The thyroid gland appears normal. Images of the lung apices reveal no abnormalities. Impression: No abnormal mass lesion identified. Pre and postcontrast MR can be pursued for further evaluation for mass lesion, if indicated. Reviewed, dictated and finalized at [facility]. Impression: No abnormal mass lesion identified. Pre and postcontrast MR can be pursued for further evaluation for mass lesion, if indicated.
== END 2023-03-23 12:53 | disposition home or self-care (01) ==
LOC: ANHIMG 12:56
PROVIDERS: PCP Family Medicine; Visit Provider Family Medicine
DX: K11.8 Other diseases of salivary glands (principal)
CPT/HCPCS: 70491; Q9967

== ENCOUNTER 2024-04-21 10:35 | Outpatient (CLI) | payer OTHER, SELFPAY ==
[2024-04-21 11:45] LABS: Basophils Absolute Auto 0.1 K/mm3 (0.0-0.1); Eosinophils Absolute Auto 0.1 K/mm3 (0-0.3); Eosinophils Percent Auto 1.1 % (0-4.4); Hematocrit 44.2 % (37.0-47.0); Hemoglobin 14.4 g/dL (12.0-15.0); Immature Granulocyte Absolute 0.01 K/mm3 (0.00-0.031); Immature Granulocyte Percent A 0.2 % (0-0.5); Lymphocytes Absolute Auto 2.39 K/mm3 (0.9-3.2); Mean Corpuscular HGB Conc 32.6 g/dl (32-36); Mean Corpuscular Hemoglobin 30.4 pg (26-34); Mean Corpuscular Volume 93.4 fl (80-100); Mean Platelet Volume 8.6 fl (7.4-10.4); Monocytes Absolute Auto 0.4 K/mm3 (0.1-0.6); Monocytes Percent Auto 6.8 % (2.6-8.5); Neutrophils Absolute Auto 3.3 K/mm3 (1.3-6.7); Neutrophils Percent Auto 52.9 % (45.5-73.1); Platelet Count Result 354 k/mm3 (150-375); Red Blood Count 4.73 M/mm3 (4.2-5.4); Red Cell Distribution Width 12.2 % (11.5-14.5); White Blood Count 6.3 K/mm3 (4.5-10.0)
[2024-04-21 12:04] LABS: Alanine Aminotransferase 28 U/L (6-35); Albumin Level 4.8 g/dL (3.5-5.1); Alkaline Phosphatase 54 U/L (38-126); Anion Gap 10 mmol/L (4-12); Aspartate Amino Transferase 26 U/L (14-36); Bilirubin,Total 0.6 mg/dL (0.2-1.3); Blood Urea Nitrogen 13 mg/dL (7-17); Calcium 9.3 mg/dL (8.4-10.2); Carbon Dioxide 30 mmol/L (22-30); Chloride 101 mmol/L (98-107); Cholesterol 230 mg/dL (0-200); Estimated Glomerular Filt Rate > 60; Glucose 96 mg/dL (65-110); HDL Direct 71 mg/dL; Sodium 141 mmol/L (137-145); Triglycerides 80 mg/dL (<150)
[2024-04-21 12:15] LABS: LDL Cholesterol Direct 112 mg/dL
== END 2024-04-21 10:36 | disposition home or self-care (01) ==
LOC: ANHLAB 10:37
PROVIDERS: PCP Family Medicine; Visit Provider Family Medicine
DX: Z00.00 Encounter for general adult medical examination without abnormal findings (principal); I10 Essential (primary) hypertension
CPT/HCPCS: 36415; 80053; 80061; 85025

== ENCOUNTER 2025-01-10 07:38 | Outpatient (CLI) | payer OTHER, SELFPAY ==
--- OUTSIDE RECORDS SUMMARY | 2025-01-10 07:43 | XMS_ITS | Clinical Summary ---
Author Organization [facility] Address [address] [place] [address] Care Team Providers Care Blending Coordinator Name Role Phone Heron Gustafson MD Primary Care Provider [phone] Allergies Active Allergy Reactions Criticality Noted Date Comments Clindamycin Hives High 07/18/2015 Codeine Hives,Other (See Comments),Hallucination High 07/18/2015 Medications hydrochlorothiazid e (MICROZIDE) 12.5 mg capsule 4 07/16/2015 Active pravastatin (PRAVACHOL) 40 mg tablet 2 04/24/2015 Active VITAMIN D2 50,000 unit capsule 0 06/05/2015 Active Active Problems Problem Noted Date Diagnosed Date Midline low back pain 08/24/2015 Family History Medical History Relation Name Comments Hypertension Mother Relation Name Status Comments Mother Social History Tobacco Use Types Packs/Day Years Used Date Smoking Tobacco: Never Smokeless Tobacco: Never Alcohol Use Standard Drinks/Week Comments Yes 0 (1 standard drink = 0.6 oz pur e alcohol) drinks twice a year if any Comments Unknown Sex and Gender Information Value Date Recorded Sex Assigned at Not on file Legal Sex Female 9:03 AM CDT Gender Identity Not on file Sexual Orientation Not on file Last Filed Vital Signs Vital Sign Reading Time Taken Comments Blood Pressure 147/94 07/18/2015 1:57 PM CDT Pulse 80 07/18/2015 1:57 PM CDT Temperature - - Respiratory Rate - - Oxygen Saturation - - Inhaled Oxygen Concentration - - Weight 66.7 kg (147 lb) 07/18/2015 1:57 PM CDT Height 165.1 cm (5' 5 ) 07/18/2015 1:57 PM CDT Body Mass Index 24.46 07/18/2015 1:57 PM CDT Plan of Treatment Health Maintenance Due Date Last Done Comments DTAP/TDAP/TD VACCINES (1 - Tdap) 12/10/1991 HEPATITIS B VACCINES (1 of 3 - 19+ 3-dose series) 11/25 HPV/Cotest (21-29) 1993 PAP SMEAR 1993 CERVICAL CANCER SCREENING 2002 HPV/Cotest (30-65) 2002 PAP SMEAR 2002 BREAST CANCER SCREENING 2012 COLORECTAL SCREENING 2017 Colorectal Cancer Screening 2017 FIT-DNA Q 3 years 2017 FIT/FOBT Q 1 year 2017 Flex Sig/CT Colonography Q 5 years 2017 ZOSTER VACCINE (1 of 2) 2022 INFLUENZA VACCINE (#1) 2024 Care Teams Blending Coordinator Relationship Specialty Start Date End Date Heron Gustafson MD PCP - General Family Practice 07/18/15
--- OUTSIDE RECORDS SUMMARY | 2025-01-10 07:43 | XMS_ITS | Clinical Summary ---
Author Organization [facility] Address [address] [place] [address] Care Team Providers Care Crm System Administrator Name Role Phone Heron Gustafson MD Primary Care Provider [phone] Source Comments [facility],non-owned Affiliates and Associated Physician Practices is amultiple site organization consisting of ambulatory clinics and hospital sitesin [place], [place], [place] and [place]. This disclosure is being madepursuant to the Care Everywhere program and may not contain all information available regarding this patient. Last updated 18.[facility] Allergies No known active allergies Medications * Be aware that medications may not be up to date on this document. Alwaysverify current medications with the patient. hydrochlorothiaz america (MICROZIDE) 12.5 MG capsule Take 12.5 mg by mouth once daily. Active nitrofurantoin monohyd macro crystals (MACROBID) 100 MG capsule Take 1 Cap by mouth 2 times daily. 20 Cap 0 08/07/2013 Active tramadol-acetami nophen (ULTRACET) 37.5-325 MG tablet Take 1 Tab by mouth every 4 hours as needed for Pain. 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[employer] Gender Identity Not on file Sexual Orientation Not on file Last Filed Vital Signs Vital Sign Reading Time Taken Comments Blood Pressure 127/85 08/07/2013 10:32 PM SUPERVISOR UNLOADING Pulse 73 08/07/2013 10:32 PM SUPERVISOR UNLOADING Temperature 36.8 C (98.2 F) 08/07/2013 10:32 PM SUPERVISOR UNLOADING Respiratory Rate 18 08/07/2013 10:32 PM SUPERVISOR UNLOADING Oxygen Saturation 98% 08/07/2013 10:32 PM SUPERVISOR UNLOADING Inhaled Oxygen Concentration - - Weight 66.7 kg (147 lb) 08/07/2013 6:30 PM SUPERVISOR UNLOADING Height 165.1 cm (5' 5 ) 08/07/2013 6:30 PM SUPERVISOR UNLOADING Body Mass Index 24.46 08/07/2013 6:30 PM SUPERVISOR UNLOADING Plan of Treatment Health Maintenance Due Date Last Done Comments COLOGUARD (AGES 45-75) - COL ON CA SCREENING 1972 COLON MONITORING 1972 COLONOSCOPY - COLON CA SCREENING 1972 CT COLONOGRAPHY - COLON CA SCREENING 1972 Colorectal Cancer Screening 1972 FIT - COLON CA SCREENING 1972 FLEX SIG - COLON CA SCREENING 1972 LIPID TESTING 1972 MAMMOGRAM 1972 PAP SMEAR 1972 HIV SCREENING 12/10/1987 HEPATITIS C SCREENING 12/05/1990 DTAP/TDAP/TD VACCINES (1 - Tdap) 12/10/1991 HEPATITIS B VACCINE (1 of 3 - 19+ 3-dose series) 12/10/1991 PNEUMOCOCCAL VACCINE 50+ (1 of 1 - PCV) 2022 ZOSTER VACCINE (1 of 2) 2022 COVID-19 VACCINE (1 - 2023-2 5 season) 2024 DEPRESSION SCREENING 09/27/2024 INFLUENZA VACCINE (Season Ended) 2025 HIB VACCINE Aged Out No longer eligi ble based on patient's age to complete this topic HPV VACCINE Aged Out No longer eligi ble based on patient's age to complete this topic MENINGOCOCCAL (Group B) VACC INE SHARED DECISION-MAKING Aged Out No longer eligibl e based on patient's age to complete this topic MENINGOCOCCAL GROUPS A/C/Y/W VACCINE Aged Out No longer eligible b ased on patient's age to complete this topic PNEUMOCOCCAL VACCINE Aged Out No long er eligible based on patient's age to complete this topic Insurance ANTHEM Care Teams Crm System Administrator Relationship Specialty Start Date End Date Heron Gustafson MD [address] [facility] [address] [id number] PCP - General Family Medicine 08/07/13
--- OUTSIDE RECORDS SUMMARY | 2025-01-10 07:43 | XMS_ITS | Clinical Summary ---
Author Organization [facility] Address [address] [place] [id number] Care Team Providers Care Senior Portfolio Manager Name Role Phone Unavailable Primary Care Provider Unavailabl e Social History Tobacco Use Types Packs/Day Years Used Date Smoking Tobacco: Never Assessed Comments Unknown Sex and Gender Information Value Date Recorded Sex Assigned at Not on file Legal Sex Female 6:31 PM CDT Gender Identity Not on file Sexual Orientation Not on file Plan of Treatment Health Maintenance Due Date Last Done Comments Cervical Cancer Screening Pa p Smear (Age 30 to 64) Every 3 Years 1972 Colorectal Cancer Screening Colonoscopy (10 Years) 1972 Annual Physical 12/10/1975 Hepatitis C 1990 DTaP, Tdap and Td Vaccines ( 1 - Tdap) 12/10/1991 Hepatitis B Vaccines (1 of 3 - 19+ 3-dose series) 12/10/1991 Cervical Cancer Screening Pa p with HPV Testing (Age 30 to 64) Every 5 Years 2002 Cervical Cancer Screening with HPV 2002 Mammogram Screening 2012 Zoster Vaccines (1 of 2) 2022 COVID-19 Vaccine (2023-2 5 season) 2024 Meningococcal B Vaccine Aged Out No l onger eligible based on patient's age to complete this topic Meningococcal Vaccine Aged Out No andry allison eligible based on patient's age to complete this topic Pneumococcal Vaccine: Pediat rics (0 to 5 Years) and At-Risk Patients (6 to 49 Years) Aged Out No longer eligible b ased on patient's age to complete this topic RSV Immunizations Under 20 Months Aged Out No longer eligible based on patient's age to complete this topic
--- OUTSIDE RECORDS SUMMARY | 2025-01-10 07:43 | XMS_ITS | Data Portability ---
Author Organization [facility] , [facility] Address [address] [place] [address] Care Team Providers Care [place] Bus Driver Name Role Phone [facility] [employer] Talent Assessment Encounter Date Assessment Date Assessment LastModified by Organization Details LastModified Time 06/30/2022 06/30/2022 annual exam. - Not a candidate for Pap - Condyloma vulva- clinical findings and management reviewed. STI screen ordered. Safe sex and condom use reviewed. Up to date with Mammo - On going w/u with GI for abd pain, recommend adequate hydration, fiber and probiotics. Routine labs done with PCP - BMI counseling, diet and exercise reviewed - RTO for annual or PRN kthanapandan Not available 08/20/2022 23:22:07 01/05/2023 01/05/2023 Menopausal vasomotor sx: Discussed etiology and significant variation in quality and duration of sx between women. Discussed options for treatment at length, including lifestyle changes, exercise, HRT, SSRIs, other medications, and CAM therapies. Discussed HRT as gold standard of tx as well as its risks and benefits. Desires to attempt conservative measures for now. [email or web address] Not available 01/05/2023 22:41:13 Plan of Treatment Reminders Order Date Submit Date Provider Last Modified By Organization Details Last Modified Time Details Appointments None recorded. Lab bacterial vaginosis + vaginitis panel, vaginal 2022 023 [facility], [address] [place], [address], 13:27:18 bacterial vaginosis + vaginitis panel, vaginal 2022 023 [facility], [address] [place], [address], 14:38:35 culture, urine 2022 [facility], [address] [place], [address], 23:23:59 HIV 1+2 Ab + HIV1 p24 Ag, quantitativ e immunoassay , serum 2021 [facility], [address] [place], [address], 14:41:56 RPR (rapid plasma reagin), serum 2021 [facility], [address] [place], [address], 14:41:57 HBsAg (hepatitis B surface Ag), serum 2021 [facility], [address] [place], [address], 14:41:56 hepatitis C virus Ab, serum 2021 [facility], [address] [place], [address], 14:41:56 bacterial vaginosis + vaginitis panel, vaginal 2021 [facility], [address] [place], [address], 07:19:48 Referral None recorded. Procedures None recorded. Surgeries None recorded. Imaging None recorded. Medication Orders None recorded. Patient TargetsNo targets recorded. Patient Instructions Encounter Date Encounter Id Patient Instructions Last Modified By Organization Details Last Modified Time 06/30/2022 [id number] abuse/domestic violence education [email or web address] Not available 06/30/2022 12:59:48 eating healthy foods: care instructions ktshelbyapandan Not available 06/30/2022 12:59:48 general health care education linusndan Not available 06/30/2022 12:59:48 weight management education ktshelbyapandan Not available 06/30/2022 12:59:48 01/05/2023 [id number] hot flashes during menopause: care instructions [email or web address] Not available 01/05/2023 22:43:06 03/31/2023 [id number] vaginitis: care instructions [email or web address] Not available 03/31/2023 13:32:12 Reason for Referral None Reported. Results Created Date Observation Date Name Description Value Unit Range Abnormal Flag Note LastModifiedBy Organization Detail LastModifiedTime 01/07/20 23 01/06/2023 VAGIN ITIS PLUS STD PANEL bacterial vaginosis BV neg negati ve normal Not Available [facility] [address] [place] [address], [address], 01/06/2023 14:38:35 01/07/20 23 01/06/2023 VAGIN ITIS PLUS STD PANEL paola species C. spp POS negati ve abnormal Not Available [facility] [address] [place] [address], [address], 01/06/2023 14:38:35 01/07/20 23 01/06/2023 VAGIN ITIS PLUS STD PANEL paola glabrata C. gla neg negati ve normal Not Available [facility] [address] [place] [address], [address], 01/06/2023 14:38:35 01/07/20 23 01/06/2023 VAGIN ITIS PLUS STD PANEL trichomonas vaginalis CV/TV TRICH neg negati ve normal Not Available [facility] [address] [place], [address], 01/06/2023 14:38:35 01/07/20 23 01/06/2023 VAGIN ITIS PLUS STD PANEL chlamydia trachomatis CT neg negati ve normal This repor t is inten ded for us in clini elias monit oring and manag ement of [facility] [place]. It is not inten ded for use in medic al-le gal appli catio n. Not Available [facility] [address] [facility], [place], [address], 01/06/2023 14:38:35 01/07/20 23 01/06/2023 VAGIN ITIS PLUS STD PANEL neisseria gonorrhoeae GC neg negati ve normal This repor t is inten ded for us in clini elias monit oring and [facility]. It is not inten ded for use in medic al-le gal appli catio n. Not Available [facility] [address] [facility], [place], [address], 01/06/2023 14:38:35 06/30/20 22 07/02/2022 HEPAT ITIS B SURFA CE ANTIG EN W/REF L CONFI RM hepatitis B surface antigen NON-RE ACTIVE non-re active normal Not Available [address] [address] [place], [address], 07/02/2022 14:41:56 06/30/20 22 07/02/2022 HEPAT ITIS C AB W/REF L TO HCV RNA, QN, PCR hepatitis C antibody NON-RE ACTIVE non-re active normal Not Available [address] [address] [place], [address], 07/02/2022 14:41:56 06/30/20 22 07/02/2022 HEPAT ITIS C AB W/REF L TO HCV RNA, QN, PCR index 0.01 <1.00 normal HCV antib roger was non-r eacti ve. There is no labor atory evide nce of HCV infec tion. In most cases , no furth er actio n is requi red. Howev er, if recen t HCV expos ure is suspe cted, a test for HCV RNA (test code 39946 ) is sugge sted. For addit ional infor matarnaud n pleas e refer to http: //[facility] catarnaud n.que stdia gnost ics.c om/fa q/FAQ 22v1 (This link is being provi ded for infor matio nal/ educa omar l purpo ses only. ) Not Available [employer] [facility] [address], [place], [address], 07/02/2022 14:41:56 06/30/2007/02/2022 HIV 1/2 ANTIG EN/AN TIBOD Y,FOU RTH GENER ATION W/RFL HIV Ag/Ab, 4TH gen NON-RE ACTIVE non-re active normal HIV-1 antig en and HIV-1 /HIV- 2 antib odies were not detec natasha. There is no labor atory evide nce of HIV infec tion. PLEAS E NOTE: This infor matio n has been discl osed to you from recor jonah whose confi denti ality may be prote cted by state law. If your state requi res such prote ction , then the state law prohi bits you from delia phipps furyamel er discl osure of the infor matio n witho ut the speci fic writt en conse nt of the perso n to whom it perta ins, or as other beverly permi tted by law. A gener al autho rizat ion for the relea se of medic al or other infor matio n is NOT suffi cient for this purpo se. For addit ional infor matio n pleas e refer to http: //[facility] cat[place] n.que stdia gnost ics.c om/fa q/FAQ 106 (This link is being provi ded for infor matio nal/ educa omar l purpo ses only. ) The perfo rmanc e of this assay has not been clini kim valid ated in patie nts less than 2 years old. Not Available [facility] [address], [place], [address], 07/02/2022 14:41:56 06/30/20 22 07/02/2022 RPR (DX) W/REF L TITER AND CONFI RMATO RY TESTI NG RPR (DX) w/refl titer and confirmatory testing NON-RE ACTIVE non-re active normal Not Available [facility] [address] [place], [address], 07/02/2022 14:41:57 06/30/2007/02/2022 VAGIN ITIS PLUS STD PANEL bacterial vaginosis BV neg negati ve normal Not Available [address], [address], 07/03/2022 07:19:48 06/30/2007/02/2022 VAGIN ITIS PLUS STD PANEL paola species C. spp POS negati ve abnormal Not Available [address], [address], 07/03/2022 07:19:48 06/30/2007/02/2022 VAGIN ITIS PLUS STD PANEL paola glabrata C. gla neg negati ve normal Not Available [address], [address], 07/03/2022 07:19:48 06/30/20 22 07/02/2022 VAGIN ITIS PLUS STD PANEL trichomonas vaginalis CV/TV TRICH neg negati ve normal Not Available [address], [address], 07/03/2022 07:19:48 06/30/2007/02/2022 VAGIN ITIS PLUS STD PANEL chlamydia trachomatis CT neg negati ve normal This repor t is inten ded for us in clini elias monit oring and manag ement of patie nts. It is not inten ded for use in medic al-le gal appli catio n. Not Available [address], [address], 07/03/2022 07:19:48 06/30/2007/02/2022 VAGIN ITIS PLUS STD PANEL neisseria gonorrhoeae GC neg negati ve normal This repor t is inten ded for us in clini elias monit oring and manag ement of patie nts. It is not inten ded for use in medic al-le gal appli catio n. Not Available [address], [address], 07/03/2022 07:19:48 01/06/20 23 01/06/2023 CULTU RE, URINE , ROUTI NE culture, urine, routine SEE NOTE CULTU RE, URINE , ROUTI NE Micro Numbe r: [id number] Test Statu s: Final Speci men Sourc e: Urine Speci men Quali ty: Adequ ate Resul t: No Growt h Not Available [facility] [address] [place], [address], 01/06/2023 23:23:59 03/31/20 23 04/01/2023 VAGIN ITIS PLUS STD PANEL bacterial vaginosis BV neg negati ve normal Not Available [address], [address], 04/01/2023 13:27:17 03/31/20 23 04/01/2023 VAGIN ITIS PLUS STD PANEL paola species C. spp neg negati ve normal Not Available [address], [address], 04/01/2023 13:27:17 03/31/20 23 04/01/2023 VAGIN ITIS PLUS STD PANEL paola glabrata C. gla neg negati ve normal Not Available [address], [address], 04/01/2023 13:27:17 03/31/20 23 04/01/2023 VAGIN ITIS PLUS STD PANEL trichomonas vaginalis CV/TV TRICH neg negati ve normal Not Available [address], [address], 04/01/2023 13:27:17 03/31/20 23 04/01/2023 VAGIN ITIS PLUS STD PANEL chlamydia trachomatis CT neg negati ve normal This repor t is inten ded for us in clini elias monit oring and manag ement of [place]. It is not inten ded for use in medic al-le gal appli catio n. Not Available [address] [place], [address], 04/01/2023 13:27:17 03/31/2004/01/2023 VAGIN ITIS PLUS STD PANEL neisseria gonorrhoeae GC neg negati ve normal This repor t is inten ded for us in clini elias monit oring and manag ement of patie nts. It is not inten ded for use in medic al-le gal appli catio n. Not Available [facility] [address] [facility], [place], [address], 04/01/2023 13:27:17 Result Notes None recorded. Problems Name Problem SNOMED Code Status Onset Date Resolution Date Notes Provider Name and Address Organization Details Recorded Time Dysuria 02076919 Active 2017 Dysuria; Progress : Stable Added By: Ruth Ann Erwin Add to Current Problems : YES ProblemS tatus: Current Not Available [facility] 2 19:17:21 Pain of breast 50503959 Completed 201705/18/2019 Breast pain; Location : None Progress : Stable Added By: Elaina Kong Add to Current Problems : YES ProblemS tatus: Resolve Breast pain; Progress : Stable Added By: Elaina Kong Add to Current Problems : NO ProblemS tatus: Resolve Not Available [facility] 2 21:55:48 Sampling of vagina for Papanico laou smear Active 2018 Encounalfonzo r for gynecolo gical examinat ion (general ) (routine ) without abnormal findings ; Progress : Stable Added By: Lorenzo Tanner Add to Current Problems : YES ProblemS tatus: Current Not Available [facility] 2 19:17:21 Acute vaginiti s 34102826 Active 2017 Acute vaginiti s; Progress : Stable Added By: He Shah Add to Current Problems : YES ProblemS tatus: Current Not Available [facility] 2 19:17:21 Screenin g mammogra phy Active 2018 Encounalfonzo r for screenin g mammogra m for malignan t neoplasm of breast; Progress : Stable Added By: Lorenzo Tanner Add to Current Problems : YES ProblemS tatus: Current Not Available [facility] 2 19:17:21 Vaginal discharg e 492949233 Active 2022 Parth Sequeira BREONNA [address] [facility], [place], [address] , [facility] 3 15:48:03 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 Procedures Surgical History Date Name Laterality Status Provider Name and Address Organization Details Recorded Time 03/16/20 Most Recent Mammogram completed Yamila Castellano [facility] 06/30/2022 12:00:20 05/05/20 18 Date of Last Pap Smear completed Kathleen [employer] [facility] 06/30/2022 06:02:44 laparoscopic total hysterectomy completed Kathleen [employer] [facility] 06/30/2022 06:04:10 ligation of bilateral fallopian tubes completed Kathleen [employer] [facility] 06/30/2022 06:04:19 Carpal tunnel surgery completed Kathleen [employer] [facility] 06/30/2022 06:04:39 biopsy of breast completed Kathleen [employer] [facility] 06/30/2022 06:05:18 hysteroscopy completed Kathleen [employer] [facility] 06/30/2022 06:10:01 Removal of Ovaries completed RILEY PATEL MD [address] [facility], [place], [address], [facility] 06/30/2022 12:47:52 Laparoscopic Hysterectomy completed Yamila Castellano [facility] 06/30/2022 12:00:39 Imaging Results None recorded. Procedure Notes None recorded. Medical Equipment None Reported. Allergies Allergen ID Allergen Name Allergen Category Reaction Reaction Severity Criticality Documentation Date Start Date Code Code System Note Provider Name and Address Organization Details Recorded Time 454463 latex environme nt,medica tion Not available Not available Not available 07/18/20212017 78328 91 RxNorm Sever ity: Moder ate; Not Available Not Available Not Available 686951 codeine phosphate medicatio n Not available Not available Not available 07/18/20212017 2672 RxNorm Sever ity: Moder ate; Not Available Not Available Not Available 856218 clindamyc in hydrochlo ride medicatio n Not available Not available Not available 07/18/20212017 65768 RxNorm Sever ity: Moder ate; Comme nt: Aller gy Delet ed On: 04/06; Not Available Not Available Not Available Medications Name Sig Start Date Stop Date Status Note LastModified by Organization Details LastModified Time atorvasta tin 40 mg tablet 1 po qd 06/30 completed Atorvast atin Calcium 20mg Tablet RxNorm: 782492 Allow Substitu tion: True Refill Denied: No Refill DateOccu rred: 04/06/20 19 Not Available Not Available Not Available atorvasta tin 80 mg tablet 1 po qd 06/30 completed Atorvast atin Calcium 20mg Tablet RxNorm: 147626 Allow Substitu tion: True Refill Denied: No Refill DateOccu rred: 04/06/20 19 Not Available Not Available Not Available atorvasta tin 10 mg tablet 1 po qd 03/31 completed Atorvast atin Calcium 20mg Tablet RxNorm: 534416 Allow Substitu tion: True Refill Denied: No Refill DateOccu rred: 04/06/20 19 Not Available Not Available Not Available ibuprofen 800 mg tablet TAKE 1 TABLET BY MOUTH THREE TIMES A DAY active Not Available Not Available No t Available fluconazo le 150 mg tablet TAKE 1 TABLET BY MOUTH TODAY, THEN REPEAT IN 72 HOURS NEEDED 03/31 completed Not Available Not Available Not Available benzonata te 200 mg capsule TAKE 1 CAPSULE BY MOUTH THREE TIMES A DAY NEEDED FOR COUGH 06/30 completed Not Available Not Available Not Available prednison e 20 mg tablet TAKE 1 TABLET BY MOUTH TWICE A DAY FOR 5 DAYS 06/30 completed Not Available Not Available Not Available metronida zole 500 mg tablet TAKE 1 TABLET BY MOUTH TWICE A DAY FOR 7 DAYS 06/30 completed Not Available Not Available Not Available amlodipin e 5 mg tablet TAKE 1 TABLET BY MOUTH EVERY DAY active Not Available Not Available No t Available ciproflox acin 500 mg tablet TAKE 1 TABLET BY MOUTH TWICE A DAY FOR 7 DAYS 06/30 completed Not Available Not Available Not Available sulfameth oxazole 800 mg-trimet hoprim 160 mg tablet TAKE 1 TABLET BY MOUTH EVERY 12 HOURS 01/05 completed Not Available Not Available Not Available losartan 100 mg-hydroc hlorothia zide 25 mg tablet 04/06 completed Losartan /Hydroch lorothia zide 50mg/12. 5mg Tablet RxNorm: 909418 Allow Substitu tion: True Refill Denied: No Refill Note: No cancel reason selected Refill DateOccu rred: 11/24/19 18 Not Available Not Available Not Available amoxicill in 875 mg tablet TAKE 1 TABLET BY MOUTH TWICE A DAY FOR 10 DAYS 06/30 completed Not Available Not Available Not Available alprazola m 0.25 mg tablet TAKE 1 TABLET BY MOUTH AT BEDTIME NEEDED FOR ANXIETY 03/31 completed Not Available Not Available Not Available neomycin- polymyxin -dexameth 3.5 mg/mL-10, 000 unit/mL-0 .1% eye drops INSTILL 1 DROP 4 TIMES A DAY IN BOTH EYES FOR 7 DAYS. SHAKE WELL. active Not Available Not Available No t Available omeprazol e 20 mg capsule,d elayed release TAKE 1 CAPSULE BY MOUTH TWICE A DAY 01/05 completed Not Available Not Available Not Available estradiol 0.01% (0.1 mg/gram) vaginal cream Apply FT amount to vulva at bedtime daily active Not Available Not Available No t Available rosuvasta tin 5 mg tablet TAKE 1 TABLET BY MOUTH EVERY DAY active Not Available Not Available No t Available amlodipin e 1 daily 06/30 completed Amlodipi ne 5mg Tablet RxNorm: 238860 Allow Substitu tion: True Refill Denied: No Refill DateOccu rred: 04/06/20 19 Not Available Not Available Not Available sodium,po tassium,m ag sulfates 17.5 gram-3.13 gram-1.6 gram oral soln TAKE 354 ML BY MOUTH DIRECTED SPLIT DOSE PREP- FOLLOW INSTRUCT IONS SENT BY RN 01/05 completed Not Available Not Available Not Available Yuvafem 10 mcg vaginal tablet Insert 1 tablet twice a week by vaginal route. active Not Available Not Available No t Available Vitals Date Recorded Body weight Body temperature Body mass index (BMI) Body height Systolic blood pressure Diastolic blood pressure Provider Name and Address Organization Details Last Updated DateTime 2 75663.5 8 g 97.6 [degF] 23.9 kg/m2 165.1 cm 122 mm[Hg] 70 mm[Hg] Yamila Castellano [facility] 2 12:03:18 Date Recorded Body height Body mass index (BMI) Body weight Body temperature Provider Name and Address Organization Details Last Updated DateTime 01/05/2023 165.1 cm 24.3 kg/m2 99600.49 g 98 [degF] Marian Leyva [facility] 01/05/2023 15:41:01 Date Recorded Body height Body mass index (BMI) Body weight Body temperature Systolic blood pressure Diastolic blood pressure Provider Name and Address Organization Details Last Updated DateTime 3 165.1 cm 24.2 kg/m2 42236.6 1 g 97.4 [degF] 120 mm[Hg] 78 mm[Hg] Daja Bear [facility] 3 12:31:21 Social History Question Answer Notes LastModified by Organizat ion Details LastModified Time Tobacco Smoking Status Never Smoker Yamila rosado [facility] 06/30/2022 12:00:32 What Is Your Level Of Alcohol Consumption? None [email or web address] Information not available 06/30/2022 Are You Blind Or Do You Have Difficulty Seeing? No Information not available 06/30/2022 Are You Currently Employed? Yes [email or web address] Information not available 01/05/2023 Are You Deaf Or Do You Have Serious Difficulty Hearing? No Information not available 06/30/2022 What Type Of Diet Are You Following? REGULAR Information not available 06/30/2022 Do You Or Have You Ever Used E-cigarettes Or Vape? Never Used Electronic Cigarettes Information not available 06/30/2022 How Many Children Do You Have? 3 [email or web address] Information not available 01/05/2023 What Is Your Relationship Status? Single Information not available 06/30/2022 Are You Sexually Active? Yes Information not available 06/30/2022 Do You Use Any Illicit Or Recreational Drugs? No Information not available 06/30/2022 Do You Or Have You Ever Used Any Other Forms Of Tobacco Or Nicotine? No Information not available 06/30/2022 Sex: Unknown Functional Status Question Answer Note LastModified by Organization D etails LastModified Time What is your exercise level? None Information not available 06/30/2022 Mental Status None recorded. Family History Relationship Description Onset Age of this Age Resolved Age Notes LastModified by Organization Details LastModified Time Mother Hyperlipidem ia Not available 2021 12:00:46 Mother Uterine leiomyoma Not available 2021 12:00:46 Mother Hypertensive disorder Not available 2021 12:00:46 Mother Hypercholest erolemia Not available 2021 12:00:46 Father Myocardial infarction Not available 06/30/2022 12:00:46 Father Diabetes mellitus Not available 2021 12:00:46 Father Hypercholest erolemia Not available 2021 12:00:46 Father Hypertensive disorder Not available 2021 12:00:46 Unspecified Relation Malignant tumor of breast Not available 2021 12:00:46 Unspecified Relation Uterine leiomyoma Not available 2021 12:00:46 Sister Hypercholest erolemia Not available 2021 12:00:46 Sister Diabetes mellitus Not available 2021 12:00:46 Medical History Condition Response High Blood Pressure Y Fibroids Y High Cholesterol Y Gynecological History Statement/Question Response Date of last HPV 05/05/2018 Frequency of Cycle (Q days) 0 Date of LMP Most Recent Bone Density HPV Vaccine N Date of Last Pap Smear 05/05/2018 Duration of Flow (days) O Most Recent Mammogram 03/16/2022 Current Control Method Hysterectom y Age at Menarche 14 Obstetrics History GPAL:G 3 P 2 1 0 3 Type Value Full Term 2 Premature 1 Living 3 Total 3 Past Encounters Encounter ID Performer Location Encounter Start Date Encounter Closed Date Diagnosis/Indication Diagnosis SNOMED-CT Code Diagnosis ICD10 Code Diagnosis Note [id number] RILEY GIL MD [address] [place] [address] 06/30/2022 11:47:21 08/25/2022 15:20:56 Gynecologic examination 39249144 Z01.419 Genital warts 715657927 A63.0 Venereal d isease screening 937767243 Z11.3 [id number] RILEY GIL MD [facility] [address] [place] [address] 01/05/2023 14:51:25 01/06/2023 09:18:11 Vaginal discharge 959024888 N89.8 N76.0 Urgent rambo becki to urinate 02899306 R39.15 Menopausal symptom 63248 002 N95.1 [id number] JOSHUA [facility] [address] [place] [address] 03/31/2023 12:26:11 03/31/2023 17:57:36 Vaginal discharge 452412127 N89.8 N76.0 *No yeast identified on wet mount. Vulvar and vaginal exam w/o redness, swelling, and irritation . *Atrophic vaginal tissue.*Se nding vaginal cx- if yeast, will send rx for diflucan and triamcinol one.*If cx negative for yeast, will send estrogen cream to apply externally .*Samples of vaginal estrogen- Imvexxy - given for vaginal dryness; irritation possibly r/t atrophic vaginitis. If Montresa does well with the vaginal estrogen, will send rx*schedul e f/u appointmen t as needed Health Concerns Section Related Observation LastModified by Organization Detai ls LastModified Time None Recorded Concern Status LastModified by Organization Details LastModified Time None Recorded Advance Directives Directive None Recorded Payers Encounter Date Sequence Insurance Name Policy Number Policy [place] Covered Member ID [place] Member ID Guarantor Name 06/30/2022 1 [employer] [id number] Montresa R Rogers [id number] Montresa R Rogers 01/05/2023 1 UMR [id number] Montresa R Hill [id number] Montresa R Hill 03/31/2023 1 UMR [id number] Montresa R Hill [id number] Montresa R Rogers Notes Date Note Type Note Provider Name and Address Organization Details Recorded Time 06/30/2022 text/html Annual GYNReport ed bypatient.Menstrual cycle:Normal menses Urinary symptoms:No hematuria; No incontinence Vulva:No genital lesion Vagina:Normal vaginal discharge Breast:No breast pain; No breast lump; No nipple discharge Sexual complaints:No sexual complaints; No pain during intercourse; Normal libido Menopausal Symptoms:No menopausal symptoms; Normal vaginal lubrication Psychological symptoms:No depression; No anxiety; No PMDD Patient is here for an annual well women's visit w/pap. 51 year old [id number] concerns: irritated area on the left vulva x 6 monthmild itchingnon tender.Cycles: none, post hysterectomy status. s/p L/S hysterectomy with R oophorectomy for fibroids.Contraceptio n: N/ASexually activeDesires STI screenLast Pap/ HPV neg in 2018Last Mammo 03/16/2022- reported to be normalHx of abd pain - eval with CT, has f/u with GI for evaluation of a spot in pancreas.Colonoscopy 2013 RILEY PATEL MD [address] [facility], [place], [address], [facility] - [facility] 08/20/2022 23:23:09 01/05/2023 text/html Pt has been experiencing irritation, dryness, pain itching, and thin white discharge for the past month. Pt says she is not sure if all of this is due to her starting to become menopausal.Posthyster ectomy status with left ovary in place.urinary urgency and vag d/c x 1mSexually activeFeeling hot flashes and sweats lately, tolerable, RILEY PATEL MD [facility], [place], [address], [facility] Verified Identity Pass IV 01/05/2023 22:43:38 03/31/2023 text/html Vaginal/Vulvar ProblemReported bypatient.Location:[facility] Quality:itching; burning; irritation Associated Symptoms:no vulvar swelling/erythema; no vulvar pain; no vulvar lesions; no dyspareunia; no dysuria; no fever; no abdominal pain;vaginal itching;vaginal irritation;vaginal pain;vulvar itching/irritation;pe lvic pain Montresa presents with c/o vulvar and vaginal irritation.States she was treated for a yeast infection in December. Symptoms were relieved for a 2 to 3 weeks, but then returned. States she has treated herself twice for yeast infection since then. Symptoms continue. Reports vaginal dryness, irritation, and vulvar irritation. JOSHUA Thomas [facility], [place], [address], [facility] Verified Identity Pass IV 04/01/2023 15:48:42 OBGyn Episode No OBEpisode recorded.
[2025-01-10 08:14] LABS: Basophils Percent Auto 0.3 % (0.2-1.2); Eosinophils Absolute Auto 0.1 K/mm3 (0-0.3); Eosinophils Percent Auto 0.5 % (0-4.4); Hematocrit 40.7 % (37.0-47.0); Hemoglobin 13.2 g/dL (12.0-15.0); Immature Granulocyte Absolute 0.05 K/mm3 (0.00-0.031); Immature Granulocyte Percent A 0.5 % (0-0.5); Lymphocytes Absolute Auto 2.28 K/mm3 (0.9-3.2); Lymphocytes Percent Auto 23.6 % (18.3-44.2); Mean Corpuscular HGB Conc 32.4 g/dl (32-36); Mean Corpuscular Hemoglobin 30.5 pg (26-34); Mean Platelet Volume 8.5 fl (7.4-10.4); Monocytes Absolute Auto 0.7 K/mm3 (0.1-0.6); Monocytes Percent Auto 7.3 % (2.6-8.5); Neutrophils Absolute Auto 6.6 K/mm3 (1.3-6.7); Neutrophils Percent Auto 67.8 % (45.5-73.1); Platelet Count Result 292 k/mm3 (150-375); Red Blood Count 4.33 M/mm3 (4.2-5.4); White Blood Count 9.7 K/mm3 (4.5-10.0)
[2025-01-10 08:33] LABS: Alanine Aminotransferase 30 U/L (6-35); Albumin Level 4.5 g/dL (3.5-5.1); Alkaline Phosphatase 65 U/L (38-126); Anion Gap 8 mmol/L (4-12); Aspartate Amino Transferase 29 U/L (14-36); Bilirubin,Total 0.9 mg/dL (0.2-1.3); Blood Urea Nitrogen 14 mg/dL (7-17); Calcium 9.1 mg/dL (8.4-10.2); Carbon Dioxide 26 mmol/L (22-30); Chloride 102 mmol/L (98-107); Cholesterol 180 mg/dL (0-200); Estimated Glomerular Filt Rate > 60; Glucose 87 mg/dL (65-110); HDL Direct 72 mg/dL; Potassium 3.8 mmol/L (3.4-5.0); Sodium 136 mmol/L (137-145); Triglycerides 86 mg/dL (<150)
[2025-01-10 08:45] LABS: LDL Cholesterol Direct 73 mg/dL
== END 2025-01-10 07:39 | disposition home or self-care (01) ==
PROVIDERS: PCP Family Medicine; Visit Provider Family Medicine
DX: Z00.00 Encounter for general adult medical examination without abnormal findings (principal)
CPT/HCPCS: 36415; 80053; 80061; 85025

== ENCOUNTER 2025-05-21 11:45 | Outpatient (CLI) | payer OTHER, SELFPAY ==
--- OUTSIDE RECORDS SUMMARY | 2025-05-21 09:30 | XMS_ITS | Encounter Summary ---
Author Organization [facility] Healthcare Address [address] [place] [address] Care Team Providers Care Automobile Or Truck Rental Dispatcher Name Role Phone Martha Hussein Unavailable Unavailable Heron Gustafson MD Primary Care Provider [phone] Reason for Visit * Reason Comments Fatigue Encounter Details Date Type Department Care Team (Late st Contact Info) Description 05/21/2025 9:30 AM CDT Office Visit [facility] Family Medicine at [address] [address] Heron Gustafson MD [address] [place] [id number] Malaise and fatigue (Primary Dx) Social History Tobacco Use Types Packs/Day Years Used Date Smoking Tobacco: Never Smokeless Tobacco: Never Alcohol Use Standard Drinks/Week Comments Not Currently 0 (1 standard drink = 0.6 oz pur e alcohol) PHQ-2 Answer Date Recorded PHQ-2 Total Score (If total score is 3 or more points, staff should administer the PHQ-9) 0 05/21/2025 AUDIT-C Answer Date Recorded Q1: How often do you have a drink containing alcohol? Never 05/21/2025 Q2: How many drinks containi ng alcohol do you have on a typical day when you are drinking? Patient does not drink Frequency of Binge Drinking Not on file 04/28 Comments No Sex and Gender Information Value Date Recorded Sex Assigned at Not on file Legal Sex Female 8:28 AM TERMINOLOGIST Gender Identity Female 08/12/2020 3:29 PM TERMINOLOGIST Sexual Orientation Straight 03/20/2025 8: 56 AM CDT documented as of this encounter Last Filed Vital Signs Vital Sign Reading Time Taken Comments Blood Pressure 120/80 05/21/2025 9:58 AM CDT Pulse 66 05/21/2025 9:58 AM CDT Temperature 37.1 C (98.8 F) 05/21/2025 9:58 AM CDT Respiratory Rate 18 05/21/2025 9:58 AM CDT Oxygen Saturation 99% 05/21/2025 9:58 AM CDT Inhaled Oxygen Concentration - - Weight 65.5 kg (144 lb 8 oz) 05/21/2025 9:58 AM CDT Height 162.6 cm (5' 4) 05/21/2025 9:58 AM CDT Body Mass Index 24.8 05/21/2025 9:58 AM CDT documented in this encounter Functional Status documented as of this encounter Progress Notes * Heron Gustafson MD - 05/21/2025 9:30 AM CDT Images from the original note were not included. Subjective/Objective Patient ID: Jesus Mccloud is a 54 y.o. female. Chief Complaint Fatigue 54-year-old female. Various complaints of some malaise and tiredness. Little dizziness on standing.Little headache. No energy. No fever. Two weeks symptoms. Some bilateral flank pain. Is still working. Review of Systems Constitutional: Positive for fatigue. Negative for fever. Respiratory: Negative for cough and shortness of breath. Cardiovascular: Negative for chest pain and leg swelling. Gastrointestinal: Negative for abdominal pain and nausea. Musculoskeletal: Positive for back pain. Negative for neck pain. Neurological: Positive for dizziness. Negative for seizures and headaches. Psychiatric/Behavioral: Negative for confusion. The patient is not nervous/anxious. No results found for this or any previous visit (from the past 2 weeks). Vitals BP 120/80 (BP Location: Right arm) Pulse 66 Temp 37.1 ??C (98.8 ??F) (Oral) Resp 18 Ht 162.6 cm (5' 4) Wt 65.5 kg (144 lb 8 oz) SpO2 99% BMI 24.80 kg/m?? Physical Exam Constitutional: Appearance: She is well-developed. Cardiovascular: Rate and Rhythm: Normal rate and regular rhythm. Heart sounds: Normal heart sounds. Pulmonary: Effort: Pulmonary effort is normal. Breath sounds: Normal breath sounds. Abdominal: General: Bowel sounds are normal. Palpations: Abdomen is soft. Skin: General: Skin is warm and dry. Neurological: Mental Status: She is alert and oriented to person, place, and time. Psychiatric: Speech: Speech normal. Assessment/Plan Diagnoses and all orders for this visit: Malaise and fatigue (R53.81, R53.83) (Primary) - CBC with auto differential; Future - Comprehensive metabolic panel; Future - Erythrocyte sedimentation rate; Future - Thyroid Function [place]; Future - Vitamin B12; Future - Tracee-Riggs virus (EBV) antibody panel Blood; Future Viral.? . No history of sleep apnea. Blood pressure is good. Weight is stable. Two weeks symptoms. Exam otherwise unremarkable. Will order a CBC Chem 12 sed rate TSH EBV titers B12. Diet. Protein. Walking, sunlight. All reviewed Return if symptoms worsen or fail to improve, for Next scheduled follow up. Heron Gustafson MD Orders Placed This Encounter Tracee-Riggs virus (EBV) antibody panel Blood Standing Status: Future Number of Occurrences: 1 Expected Date: 05/24/2025 Expiration Date: 05/21/2026 CBC with auto differential Standing Status: Future Number of Occurrences: 1 Expected Date: 05/21/2025 Expiration Date: 05/21/2026 Comprehensive metabolic panel Standing Status: Future Number of Occurrences: 1 Expected Date: 05/21/2025 Expiration Date: 05/21/2026 Erythrocyte sedimentation rate Standing Status: Future Number of Occurrences: 1 Expected Date: 05/21/2025 Expiration Date: 05/21/2026 Thyroid Function [place] Standing Status: Future Number of Occurrences: 1 Expected Date: 05/21/2025 Expiration Date: 05/21/2026 Vitamin B12 Standing Status: Future Number of Occurrences: 1 Expected Date: 05/21/2025 Expiration Date: 05/21/2026 documented in this encounter Plan of Treatment Scheduled Orders Name Type Priority Associated Diagnoses Orde r Schedule CBC with auto differential Lab Routine Malaise and fatigue Expected: 05/21/2025, Expires: 05/21/2026 Comprehensive metabolic panel Lab Routine Malaise and fatigue Expected: 05/21/2025, Expires: 05/21/2026 Erythrocyte sedimentation rate Lab Routine Malaise and fatigue Expected: 05/21/2025, Expires: 05/21/2026 Thyroid Function [place] Lab Routine Malaise and fatigue Expected: 05/21/2025, Expires: 05/21/2026 Vitamin B12 Lab Routine Malaise and fatigue Expected: 05/21/2025, Expires: 05/21/2026 Tracee-Riggs virus (EBV) antibody panel Blood Microbiology Routine Malaise and fatigue Expected: 05/24/2025, Expires: 05/21/2026 documented as of this encounter Visit Diagnoses Diagnosis Malaise and fatigue- Primary documented in this encounter Care Teams Automobile Or Truck Rental Dispatcher Relationship Specialty Start Date End Date Heron Gustafson MD PCP - General 06/08/19 Martha Hussein Registered Nurse 12/22/18 documented as of this encounter
--- OUTSIDE RECORDS SUMMARY | 2025-05-21 12:15 | XMS_ITS | Encounter Summary ---
Author Organization [facility] Facility Care Team Providers Care Guest Services Agent Name Role Phone Heron Gustafson MD Primary Care Provider [phone] Martha Hussein Unavailable Unavailable Gary Rodarte MD Primary Care Provider [phone] Heron Gustafson MD Primary Care Provider [phone] Encounter Details Date Type Department Care Team (Latest Contact Info) Description 05/14/2017 Orders Only [facility] ProviderTea MD [address] [place] [address] Social History Tobacco Use Types Packs/Day Years Used Date Smoking Tobacco: Never Assessed Comments Unknown Sex and Gender Information Value Date Recorded Sex Assigned at Not on file Legal Sex Female 8:28 AM SPINNING ROOM WORKER Gender Identity Female 08/12/2020 3:29 PM SPINNING ROOM WORKER Sexual Orientation Straight 03/20/2025 8: 56 AM CDT documented as of this encounter Plan of Treatment Not on file documented as of this encounter Procedures Procedure Name Priority Date/Time Associated Diagnosis Comments SCAN - LABS 05/21/2017 12:00 AM CDT documented in this encounter Results * SCAN - LABS (05/21/2017 12:00 AM CDT) Narrative 05/21/2017 12:00 AM CDT Ordered by an unspecified provider. us Historical Provider Final Res ult documented in this encounter Visit Diagnoses Not on filedocumented in this encounter Care Teams Guest Services Agent Relationship Specialty Start Date End Date Heron Gustafson MD PCP - General 05/04/17 01/04/19 Gary Rodarte MD [address] [facility] [address] [address] PCP - General 01/05/19 06/07/19 Heron Gustafson MD PCP - General 06/08/19 Martha Hussein Registered Nurse 12/22/18 documented as of this encounter
--- OUTSIDE RECORDS SUMMARY | 2025-05-21 12:15 | XMS_ITS | Clinical Summary ---
Author Organization [facility] Address [address] [place] [address] Care Team Providers Care Board Setter Name Role Phone Unavailable Primary Care Provider [...] Screening with HPV 2002 Mammogram Screening 2012 Pneumococcal Vaccine: 50+ Ye ars (1 of 1 - PCV) 2022 Zoster Vaccines (1 of 2) 2022 COVID-19 Vaccine ( - 2023-2 5 season) 2024 Meningococcal B Vaccine Aged Out No l onger eligible based on patient's age to complete this topic Meningococcal Vaccine Aged Out No andry allison eligible based on patient's age to complete this topic RSV Immunizations Under 20 Months Aged Out No longer eligible based on patient's age to complete this topic
--- OUTSIDE RECORDS SUMMARY | 2025-05-21 12:15 | XMS_ITS | Encounter Summary ---
Author Organization [facility] Facility Care Team Providers Care Care Program Director Name Role Phone Unknown, Notinfile Primary Care Provider Unavail able Heron Gustafson MD Primary Care Provider Martha Hussein Unavailable Unavailable Gary Rodarte MD Primary Care Provider [phone] Heron Gustafson MD Primary Care Provider [phone] Encounter Details Date Type Department Care Team (Latest Contact Info) Description 05/28/2016 Orders Only [facility] ProviderTea MD [address] [place] [address] Social History Tobacco Use Types Packs/Day Years Used Date Smoking Tobacco: Never Assessed Comments Unknown Sex and Gender Information Value Date Recorded Sex Assigned at Not on file Legal Sex Female 8:28 AM PAINTER SHIPYARD Gender Identity Female 08/12/2020 3:29 PM PAINTER SHIPYARD Sexual Orientation Straight 03/20/2025 8: 56 AM CDT documented as of this encounter Plan of Treatment Not on file documented as of this encounter Procedures Procedure Name Priority Date/Time Associated Diagnosis Comments CARDIOLOGY REPORT 05/28/2016 12: 00 AM CDT documented in this encounter Results * CARDIOLOGY REPORT (05/28/2016 12:00 AM CDT) Anatomical Region Laterality Modality Other Narrative 05/28/2016 12:00 AM CDT Ordered by an unspecified provider. Historical Provider [facility] CARLOS BRAUN Final Result documented in this encounter Visit Diagnoses Not on filedocumented in this encounter Care Teams Care Program Director Relationship Specialty Start Date End Date Unknown, Notinfile PCP - General 04/28/17 05/03/17 Heron Gustafson MD PCP - General 05/04/17 01/04/19 Gary Rodarte MD [address] [facility] [address] [address] PCP - General 01/05/19 06/07/19 Heron Gustafson MD PCP - General 06/08/19 Martha Hussein Registered Nurse 12/22/18 documented as of this encounter
--- OUTSIDE RECORDS SUMMARY | 2025-05-21 12:15 | XMS_ITS | Encounter Summary ---
Author Organization [facility] Facility Care Team Providers Care Medical Records Library Professor Name Role Phone Unknown, Notinfile Primary Care Provider Unavail able Heron Gustafson MD Primary Care Provider [phone] Martha Hussein Unavailable Unavailable Gary Rodarte MD Primary Care Provider [phone] Heron Gustafson MD Primary Care Provider [phone] Encounter Details Date Type Department Care Team (Latest Contact Info) Description 04/13/2016 Orders Only [facility] ProviderTea MD [address] [place] [address] Social History Tobacco Use Types Packs/Day Years Used Date Smoking Tobacco: Never Assessed Comments Unknown Sex and Gender Information Value Date Recorded Sex Assigned at Not on file Legal Sex Female 8:28 AM FINANCE AND ADMINISTRATION MANAGER Gender Identity Female 08/12/2020 3:29 PM FINANCE AND ADMINISTRATION MANAGER Sexual Orientation Straight 03/20/2025 8: 56 AM CDT documented as of this encounter Plan of Treatment Not on file documented as of this encounter Procedures Procedure Name Priority Date/Time Associated Diagnosis Comments SCAN - LABS 05/08/2016 12:00 AM CDT documented in this encounter Results * SCAN - LABS (05/08/2016 12:00 AM CDT) Narrative 05/08/2016 12:00 AM CDT Ordered by an unspecified provider. Historical Provider Final Res ult documented in this encounter Visit Diagnoses Not on filedocumented in this encounter Care Teams Medical Records Library Professor Relationship Specialty Start Date End Date Unknown, Notinfile PCP - General 04/28/17 05/03/17 Heron Gustafson MD PCP - General 05/04/17 01/04/19 Gary Rodarte MD [address] [facility] [address] [address] PCP - General 01/05/19 06/07/19 Heron Gustafson MD PCP - General 06/08/19 Martha Hussein Registered Nurse 12/22/18 documented as of this encounter
--- OUTSIDE RECORDS SUMMARY | 2025-05-21 12:15 | XMS_ITS | Encounter Summary ---
Author Organization [facility] Facility Care Team Providers Care Acid Patroller Name Role Phone Heron Gustafson MD Primary Care Provider [phone] Martha Hussein Unavailable Unavailable Gary Rodarte MD Primary Care Provider [phone] Heron Gsutafson MD Primary Care Provider [phone] Encounter Details Date Type Department Care Team (Latest Contact Info) Description 01/12/2018 Orders Only [facility] ProviderTea MD [address] [place] [address] Social History Tobacco Use Types Packs/Day Years Used Date Smoking Tobacco: Never Comments Unknown Sex and Gender Information Value Date Recorded Sex Assigned at Not on file Legal Sex Female 8:28 AM LOST CHARGE CARD CLERK Gender Identity Female 08/12/2020 3:29 PM LOST CHARGE CARD CLERK Sexual Orientation Straight 03/20/2025 8: 56 AM CDT documented as of this encounter Plan of Treatment Not on file documented as of this encounter Procedures Procedure Name Priority Date/Time Associated Diagnosis Comments PROCEDURE - RESULT 01/14/2018 12 :00 AM CDT PROCEDURE - RESULT 01/12/2018 12 :00 AM CDT documented in this encounter Results * PROCEDURE - RESULT (01/14/2018 12:00 AM CDT) Narrative 01/14/2018 12:00 AM CDT Ordered by an unspecified provider. Historical Provider Final Res ult * PROCEDURE - RESULT (01/12/2018 12:00 AM CDT) Narrative 01/12/2018 12:00 AM CDT Ordered by an unspecified provider. us Historical Provider MD Farris Res ult documented in this encounter Visit Diagnoses Not on filedocumented in this encounter Care Teams Acid Patroller Relationship Specialty Start Date End Date Heron Gustafson MD PCP - General 05/04/17 01/04/19 Gary Rodarte MD [address] [facility] [address] [address] PCP - General 01/05/19 06/07/19 Heron Gustafson MD PCP - General 06/08/19 Martha Hussein Registered Nurse 12/22/18 documented as of this encounter
--- OUTSIDE RECORDS SUMMARY | 2025-05-21 12:15 | XMS_ITS | Encounter Summary ---
Author Organization [facility] Facility Care Team Providers Care Major Assembly Lineman Name Role Phone Heron Gustafson MD Primary Care Provider [phone] Martha Hussein Unavailable Unavailable Gary Rodarte MD Primary Care Provider [phone] Heron Gustafson MD Primary Care Provider [phone] Encounter Details Date Type Department Care Team (Latest Contact Info) Description 12/30/2017 Orders Only [facility] ProviderTea MD [address] [place] [address] Social History Tobacco Use Types Packs/Day Years Used Date Smoking Tobacco: Never Comments Unknown Sex and Gender Information Value Date Recorded Sex Assigned at Not on file Legal Sex Female 8:28 AM SALES FLOOR MANAGER Gender Identity Female 08/12/2020 3:29 PM SALES FLOOR MANAGER Sexual Orientation Straight 03/20/2025 8: 56 AM CDT documented as of this encounter Plan of Treatment Not on file documented as of this encounter Procedures Procedure Name Priority Date/Time Associated Diagnosis Comments SCAN - PATHOLOGY 01/04/2018 12:0 0 AM CDT documented in this encounter Results * SCAN - PATHOLOGY (01/04/2018 12:00 AM CDT) Narrative 01/04/2018 12:00 AM CDT Ordered by an unspecified provider. us Historical Provider Final Res ult documented in this encounter Visit Diagnoses Not on filedocumented in this encounter Care Teams Major Assembly Lineman Relationship Specialty Start Date End Date Heron Gustafson MD PCP - General 05/04/17 01/04/19 Gary Rodarte MD [address] [facility] [address] [address] PCP - General 01/05/19 06/07/19 Heron Gustafson MD PCP - General 06/08/19 Martha Hussein Registered Nurse 12/22/18 documented as of this encounter
--- OUTSIDE RECORDS SUMMARY | 2025-05-21 12:15 | XMS_ITS | Encounter Summary ---
Author Organization [facility] Facility Care Team Providers Care Loan Review Analyst Name Role Phone Unknown, Notinfile Primary Care Provider Unavail able Heron Gustafson MD Primary Care Provider [phone] Martha Hussein Unavailable Unavailable Gary Rodarte MD Primary Care Provider [phone] Heron Gustafson MD Primary Care Provider [phone] Encounter Details Date Type Department Care Team (Latest Contact Info) Description 05/18/2016 Orders Only [facility]INCON[facility] ProviderTea MD [address] [place] [address] Social History Tobacco Use Types Packs/Day Years Used Date Smoking Tobacco: Never Assessed Comments Unknown Sex and Gender Information Value Date Recorded Sex Assigned at Not on file Legal Sex Female 8:28 AM DELIVERY OF SHOPPING NEWS Gender Identity Female 08/12/2020 3:29 PM DELIVERY OF SHOPPING NEWS Sexual Orientation Straight 03/20/2025 8: 56 AM CDT documented as of this encounter Plan of Treatment Not on file documented as of this encounter Procedures Procedure Name Priority Date/Time Associated Diagnosis Comments CARDIOLOGY REPORT 05/25/2016 12: 00 AM CDT documented in this encounter Results * CARDIOLOGY REPORT (05/25/2016 12:00 AM CDT) Anatomical Region Laterality Modality Other Narrative 05/25/2016 12:00 AM CDT Ordered by an unspecified provider. Historical Provider [facility] CARLOS BRAUN Final Result documented in this encounter Visit Diagnoses Not on filedocumented in this encounter Care Teams Loan Review Analyst Relationship Specialty Start Date End Date Unknown, Notinfile PCP - General 04/28/17 05/03/17 Heron Gustafson MD PCP - General 05/04/17 01/04/19 Gary Rodarte MD [address] [facility] [address] [address] PCP - General 01/05/19 06/07/19 Heron Gustafson MD PCP - General 06/08/19 Martha Hussein Registered Nurse 12/22/18 documented as of this encounter
--- OUTSIDE RECORDS SUMMARY | 2025-05-21 12:15 | XMS_ITS | Clinical Summary ---
Author Organization [facility] Address [address] [place] [address] Care Team Providers Care Manager Trade Marketing Name Role Phone Martha Hussein Unavailable Unavailable Heron Gustafson MD Primary Care Provider Allergies Active Allergy Reactions Criticality Noted Date Comments Codeine Hallucinations,Hives ,Othe r (See comments) High 07/18/2015 Reaction: Elevates blood pressure Confusion Codeine Phosphate Hallucinations Medium 11/23/2017 Latex Hives,Other (See comments),Rash Medium 10/22/2016 Reaction: Rash Medications triamcinolone (KENALOG) 0.1 % ointment Apply topically 2 (two) times a day 60 g 5 Active ALPRAZolam (XANAX) 0.25 mg tablet Take 1 tablet (0.25 mg total) by mouth 2 (two) times a day 30 tablet 1 5 Active rosuvastatin (CRESTOR) 5 mg tablet Take 1 tablet (5 mg total) by mouth daily 90 tablet 3 5 Active amLODIPine (NORVASC) 5 mg tablet Take 1 tablet (5 mg total) by mouth daily 90 tablet 3 5 Active Active Problems Problem Noted Date Diagnosed Date Annual physical exam 02/03/2023 Change in bowel habits 07/01/2022 Overview (07/01/2022): Added automatically from request for surgery [id number] Bilateral lower extremity edema 03/19/2022 Neck pain on right side 03/19/2022 Dysuria 04/17/2021 Urinary frequency 04/17/2021 Hyponatremia 08/12/2020 Essential hypertension 08/12/2020 Anxiety 08/12/2020 Gas pain 07/31/2019 Mass of right parotid gland 07/31/2019 Hyperlipidemia 05/18/2016 Resolved Problems Problem Noted Date Diagnosed Date Resolved Date Non-recurrent acute serous o titis media of both ears 12/18/2019 03/06/2021 Acute bilateral low back nora n without sciatica 07/31/2019 08/12/2020 Encounters Date Type Department Care Team Description 05/21/2025 9:30 AM CDT Office Visit [facility] Family Medicine at [address] [place] [address] Heron Gustafson MD Malaise and fatigue (Primary Dx) 03/22/2025 2:00 PM CDT - 03/22/2025 11:59 PM CDT Hospital Encounter [facility] [address] [place] [address] Screening mammogram, encounter for Discharge Disposition: Discharge to home or self care from Last 3 Months Immunizations Immunization Administration Dates Next Due Influenza, Quadrivalent, Spl it, Preservative Free, Intramuscular 07/20/2023 Influenza, Trivalent, IM (MDV) 06/28/2018 Influenza, Trivalent, Preser vative Free, Intramuscular 07/17/2024 Influenza, Unspecified 06/27/2022,07/12/2021, Pfizer SARS-CoV-2 Monovalent Vaccination (12+ Yrs) PURPLE 09/05/2021,08/15/2021 Tdap 06/29/2016 Surgical History Surgery Date Site/Laterality Comments NM LIG/TRNSXJ FLP TUBE ABDL/ VAG APPR UNI/BI Tubal Ligation - (Added by TW Conv) NM DILATION & CURETTAGE DX&/ THER NONOBSTETRIC Dilation And Curettage - (Added by TW Conv) NM TOTAL ABDOMINAL HYSTERECT W/WO RMVL TUBE OVARY Hysterectomy - (Added by TW Conv) BREAST BIOPSY Left Medical History Medical History Date Comments Personal history of other di seases of the circulatory system History of hypertension - (A dded by TW Conv) Personal history of other me dical treatment History of blood transfusion - (Added by TW Conv) Hyperlipidemia PONV (postoperative nausea and vomiting) Mitral regurgitation Family History Medical History Relation Name Comments Breast cancer Cousin Diabetes Father Family history of diabetes mellitus - (Added by TW Conv) Hypertension Father Family history of hypertension - (Added by TW Conv) Stroke Father Family history of cerebrovascular accident (CVA) - (Added by TW Conv) Hypertension Mother Family history of hypertension - (Added by TW Conv) Hypertension Other Family history of hypertension - Relation: Aunt (Added by TW Conv) Relation Name Status Comments Cousin Father Maternal Grandfather Maternal Grandmother Maternal Half-Brother Alive Maternal Half-Sister Alive Mother Alive Other Paternal Grandfather Paternal Grandmother Paternal Half-Brother 6 Alive Paternal Half-Sister 6 Alive Social History Tobacco Use Types Packs/Day Years Used Date Smoking Tobacco: Never Smokeless Tobacco: Never Tobacco Cessation:Counseling Given: Not Answered Alcohol Use Standard Drinks/Week Comments Not Currently [...] on file Legal Sex 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 Gender Identity Female 08/12/2020 3:29 PM CUFFING MACHINE OPERATOR Sexual Orientation Straight 03/20/2025 8: 56 AM CDT Obstetrics History Para Term AB IAB SAB Ectopic Multiple Livin g Live Births 3 3 3 Date Outcome GA Total Labor Labor/2nd/3rd Weight Sex Type Anes PTL Miriam A1 A5 Name Clin Term Term Term Last Filed Vital Signs Vital Sign Reading [...] Mass Index 24.8 05/21/2025 9:58 AM CDT Plan of Treatment Health Maintenance Due Date Last Done Comments Hepatitis C Screening 1970 Hepatitis B Screening 1990 Zoster Vaccine (1 of 2) 2022 Covid-19 Vaccine ( season) 2024 09/05/2021, 08/15/2021 Influenza Vaccine (#1) 2025 , 07/20/2023, 06/27/2022, Additional history exists Regular Well Visit/Exam 18-64 12/07/2025 12/07/2024, 02/03/2023 Breast Cancer Screening-Mammogram 03/22/2026 03/22/2025, 03/23/2022, 06/08/2019, Additional history exists Depression Screening 05/21/2026 05/21/2025, 02/03/2023, 03/19/2022, Additional history exists DTaP/Tdap/Td Vaccine (2 - Td or Tdap) 06/29/2026 06/29/2016 Colon Cancer Screening-Colonoscopy 08/28/2032 08/28/2022 Pneumococcal vaccine <65 Aged Out No longer eligible based on patient's age to complete this topic Procedures Procedure Name Priority Date/Time Associated Diagnosis Comments SCREENING MAMMOGRAM BILATERAL W ANAYELI Schedule Routine, Read Routine (OP Routine) 03/22/2025 2:21 PM CDT Screening mammogram, encounter for COLONOSCOPY 08/28/2022 10:37 AM CUFFING MACHINE OPERATOR from Last 3 Months or Most Recently Relevant to Health Maintenance Results * Screening Mammogram Bilateral W Anayeli (03/22/2025 2:21 PM CDT) Anatomical Region Laterality Modality Breast Bilateral Mammography Impressions 03/22/2025 2:53 PM CDT Bilateral No evidence of malignancy in either breast. OVERALL BI-RADS FINAL ASSESSMENT: 1 - Negative RECOMMENDATION: Recommend bilateral annual screening mammography. Narrative 03/22/2025 2:53 PM CDT EXAMINATION: Screening Mammogram Bilateral W Anayeli: 03/22/2025 COMPARISON: Relevent prior studies available at the time of interpretation were reviewed, including the most recent mammogram on: 03/23/2022, 06/08/2019, 06/08/2019, 12/30/2017, 2017, 2017, and 02/16/2017. TECHNIQUE: Mammography was performed with 2D and digital breast tomosynthesis (DBT) images. CAD was utilized. BREAST PARENCHYMAL COMPOSITION: The breasts are heterogeneously dense, which may obscure small masses. FINDINGS: There is a biopsy marker clip in the left breast. No suspicious mass, calcification, or architectural distortion is seen in either breast. There has been no suspicious interval change. us Self Screening Mammogram IMG MAMMO PROCEDURES Fi nal Result * COLONOSCOPY (08/28/2022 10:37 AM CUFFING MACHINE OPERATOR) Anatomical Region Laterality Modality Other Narrative Procedure Note Marcus Jennings MD - 08/28/2022 10:37 AM CST ENDOSCOPY LAB Patient Name: Jesus Mccloud Procedure Date: 08/28/2022 10:37 AM Admit Type: Outpatient Room: [facility] Date of : 1970 Instrument Name: [id number] Gender: Female Note Status: Finalized Procedure: Colonoscopy Indications: Screening for colorectal malignant neoplasm Providers: Marcus Jennings M.D. Referring MD: Heron Gustafson M.D. Medicines: Monitored Anesthesia Care Complications: No immediate complications. Estimated Blood Loss: Estimated blood loss: none. Procedure: Pre-Anesthesia Assessment: - The risks and benefits of the procedure and the sedation options and risks were discussed with the patient. All questions were answered and informed consent was obtained. - Immediately prior to administration ofmedications, the patient was re-assessed for adequacy to receive sedatives. The benefits, risks and alternatives of theprocedure and sedation were discussed and informed consentwas obtained. All questions were answered. Please referto the signed informed consent document in the medical record. The scope was passed under direct vision.The Colonoscope was introduced through the anus and advanced to the cecum, identified by appendiceal orifice and ileocecal valve. The colonoscopy was performed without difficulty. The patient tolerated the procedure well. The quality of the bowel preparation was good. The bowel preparation usedwas SUPREP via split dose instruction. Findings: The perianal and digital rectal examinations were normal. A 2 mm polyp was found in the ascending colon. The polyp was sessile. The polyp was removed with a cold biopsy forceps. Resection and retrieval were complete. Non-bleeding internal hemorrhoids were found during retroflexion. The hemorrhoids were small. The exam was otherwise without abnormality. Impression: - One 2 mm polyp in the ascending colon, removedwith a cold biopsy forceps. Resected and retrieved. - Non-bleeding internal hemorrhoids. - The examination was otherwise normal. Recommendation: - Await pathology results. - Repeat colonoscopy in 5 years for surveillance. - Return to referring physician as previously scheduled. Attending Participation: I personally performed the entire procedure. Electronically signed by Marcus Jennings M.D. Marcus Jennings M.D. 08/28/2022 11:48:05 AM This document was signed electronically. Number of Addenda: 0 Note Initiated On: 08/28/2022 10:37 AM Scope Withdrawal Time: 0 hours 6 minutes 0 seconds Scope In: 10:53:12 AM Scope Out: 11:05:12 AM Marcus Jennings MD ENDOSCOPY PROCEDURES Final Result from Last 3 Months or Most Recently Relevant to Health Maintenance Insurance [facility] Advance Directives For more information, please contact: [phone] * Full Code (Latest Code Status on File) Date Activated Date Inactivated Comments 08/28/2022 9:59 AM 08/28/2022 5:32 PM Care Teams Manager Trade Marketing Relationship Specialty Start Date End Date Heron Gustafson MD PCP - General 06/08/19 Martha Hussein Registered Nurse 12/22/18
[2025-05-21 12:17] LABS: Hematocrit 41.1 % (37.0-47.0); Hemoglobin 13.7 g/dL (12.0-15.0); Immature Granulocyte Percent A 0.2 % (0-0.5); Lymphocytes Absolute Auto 2.19 K/mm3 (0.9-3.2); Mean Corpuscular HGB Conc 33.3 g/dl (32-36); Mean Corpuscular Hemoglobin 30.4 pg (26-34); Mean Corpuscular Volume 91.3 fl (80-100); Nucleated Red Blood Cells Absolute Auto 0.000 K/mm3 (0.0-0.012); Nucleated Red Blood Cells Perc 0.0 % (0.0-0.2); Platelet Count Result 309 k/mm3 (150-375); Red Blood Count 4.50 M/mm3 (4.2-5.4); White Blood Count 6.0 K/mm3 (4.5-10.0)
[2025-05-21 12:34] LABS: Alanine Aminotransferase 28 U/L (6-35); Albumin Level 4.6 g/dL (3.5-5.1); Alkaline Phosphatase 53 U/L (38-126); Anion Gap 6 mmol/L (4-12); Aspartate Amino Transferase 38 U/L (14-36); Bilirubin,Total 0.7 mg/dL (0.2-1.3); Blood Urea Nitrogen 12 mg/dL (7-17); Calcium 9.3 mg/dL (8.4-10.2); Carbon Dioxide 28 mmol/L (22-30); Chloride 103 mmol/L (98-107); Estimated Glomerular Filt Rate > 60; Glucose 89 mg/dL (65-110); Potassium 3.8 mmol/L (3.4-5.0); Sodium 137 mmol/L (137-145); Total Protein 8.1 g/dL (6.3-8.2)
[2025-05-21 14:14] LABS: Vitamin B12 733.0 pg/mL (239-931)
[2025-05-22 07:08] LABS: TSH 2.090 uIU/mL (0.450-4.500)
[2025-05-22 15:09] LABS: EBV Nuclear Antigen Ab, IgG >600.0 U/mL (0.0-17.9)
== END 2025-05-21 11:46 | disposition home or self-care (01) ==
LOC: ANHLAB 11:47
PROVIDERS: PCP Family Medicine; Visit Provider Family Medicine
DX: R53.81 Other malaise (principal); R53.83 Other fatigue
CPT/HCPCS: 36415; 80053; 82607; 84439; 84443; 84481; 85025; 85652; 86376; 86664; 86665